=== PATIENT | male | born 1960 | race Caucasian/White ===

== ENCOUNTER 2016-06-04 00:36 | Day surgery (SDC) | payer OTHER ==
[~2016-06-04] VITALS: Ht 162.6 cm; Wt 89.2 kg
[~2016-06-04 00:36] MED LIST: NORMODYNE
[2016-06-04 01:55] LABS: BASO % 0.5 % (0.0-1.0); EOS # 0.1 K/mm3 (0.0-0.50); EOS % 0.5 % (0.0-3.0); LARGE UNSTAINED CELL % 0.3 % (0.0-4.0); LYMPH # 0.7 K/mm3 (1.5-4.5); LYMPH % 6.4 % (24.0-44.0); MEAN CORPUSCULAR HEMOGLOBIN 29.3 pg (27.0-33.0); MEAN CORPUSCULAR HGB CONC 33.7 g/dl (32.0-36.5); MONO # 0.2 K/mm3 (0.0-0.8); MONO % 2.2 % (0.0-5.0); NEUTROPHILS # 9.3 K/mm3 (1.8-7.7); NEUTROPHILS % 90.1 % (36.0-66.0); PLATELET COUNT, AUTOMATED 268 k/mm3 (150-450); WHITE BLOOD COUNT 10.3 K/mm3 (4.0-10.0)
[2016-06-04 02:17] LABS: ALBUMIN/GLOBULIN RATIO 1.11 (1.00-1.93); ALKALINE PHOSPHATASE 54 U/L (45-117); ALT/SGPT 21 U/L (12-78); AMYLASE 37 U/L (25-115); ANION GAP 11 MEQ/L (8-16); AST/SGOT 14 U/L (15-37); BILIRUBIN,DIRECT < 0.1 MG/DL (0.0-0.2); BILIRUBIN,TOTAL 0.3 MG/DL (0.2-1.0); BLOOD UREA NITROGEN 18 MG/DL (7-18); CALCIUM LEVEL 9.1 MG/DL (8.5-10.1); CARBON DIOXIDE LEVEL 26 MEQ/L (21-32); CHLORIDE LEVEL 105 MEQ/L (98-107); CREATININE FOR GFR 1.05 MG/DL (0.70-1.30); GLOMERULAR FILTRATION RATE > 60.0 (>56); GLUCOSE, FASTING 150 MG/DL (70-105); POTASSIUM SERUM 3.4 MEQ/L (3.5-5.1); SODIUM LEVEL 142 MEQ/L (136-145); TOTAL PROTEIN 7.6 GM/DL (6.4-8.2)
[2016-06-04] MEDS ORDERED: ISOVUE-370 76% 100ML VIAL (Q9967) As Ordered ONE (03:41)
[2016-06-04] MEDS ORDERED: HYDROmorphone HCL 1 MG/ML SYRINGE (J1170) As Ordered ONE ×2 (04:00→08:34)
[2016-06-04] MEDS ORDERED: ONDANSETRON 4MG/2ML VIAL (J2405) As Ordered ONE ×2 (04:14→13:14)
[2016-06-04] MEDS ORDERED: dexameTHASONE 20 MG/5 ML VIAL (J1100) As Ordered ONE (04:14)
[2016-06-04] MEDS ORDERED: diphenhydrAMINE INJ 50MG/ML VIAL (J1200) As Ordered ONE (04:14)
--- NOTE | 2016-06-04 06:10 | REPUSA ---
CLINICAL HISTORY: Abdominal pain. TECHNIQUE: Multiple axial, sagittal and coronal CT images were obtained through the abdomen and pelvi s after administration of intravenous contrast material. COMMENTS: The liver is mildly enlarged with decreased attenuation without mass or defect. There is no intra or extrahepatic biliary ductal dilatation. The spleen is normal. The gallbladder is diffusely thickened. Mild pericholecystic fat stranding. The pancreas is of normal contour and attenuation characteristic s. There is no evidence of adrenal mass. Multifocal scarring of the right kidney. Right renal simple cyst. Both kidneys demonstrate prompt and equal nephrograms. The kidneys are otherwise normal in size, shap e and configuration. There is no evidence of renal or ureteral mass. No renal or ureteral calculi are identified. There is no hydroureter or hydronephrosis. No evidence for appendicitis. There is thickening of the mid aspect of the sigmoid colon.. No eviden ce for small or large bowel obstruction. There is no evidence of abdominal ascites or lymphadenopathy . There is no evidence of intrinsic or extrinsic bladder mass. Moderate prostatomegaly. Prostatic calci fications. Thickened bladder. There is no pelvic ascites or lymphadenopathy. Mild large bowel fecal s tasis. Uncomplicated clonic diverticulosis. Images of the lung bases show no evidence of pleural or parenchymal mass. There are no pleural effusi ons. The bony structures are free of lytic or blastic lesions. Multilevel degenerative changes are seen in volving the thoracolumbar spine. Scattered calcifications are seen involving the aorta and major bran ches compatible with atherosclerosis. IMPRESSION: Mild hepatomegaly with fatty liver infiltration. Diffuse thickening of the wall of the gallbladder with pericholecystic fat stranding. Mild changes of acute cholecystitis are suspected. Ultrasound exam is helpful to further evaluate this finding. Thickening of the mid aspect of the sigmoid. Under distention versus mild colitis. Sigmoid diverticulosis. Moderate prostatomegaly. Prostatic calcifications. Thickened bladder. Thank you for your kind referral of this patient.
[2016-06-04] MEDS ORDERED: LISINOPRIL 10 MG TAB As Ordered ONE (08:14)
--- NOTE | 2016-06-04 09:15 | REP ---
Right upper quadrant sonography: History: Biliary colic. Comparison is made with CT study done earlier this date. Findings: Scanning through the right upper quadrant demonstrates a somewhat dilated, slightly thick-walled gallbladder. Gallbladder measures 10.5 cm in length. The gallbladder wall is 0.36 cm in thickness. There is evidence of a shadowing calculous in the cystic duct. There is tenderness to scanning over the gallbladder. There is evidence of fatty infiltration of the liver. Common bile duct is dilated measuring 1.84 cm. No intrahepatic ductal dilation is seen. The scan quality is somewhat limited due to high liver position. No right renal abnormality or ascites is seen. The right kidney measures 11.0 x 5.3 x 4.3 cm. Impression: Dilated, thick-walled gallbladder containing a shadowing calculus in the cystic duct. Dilated CBD 1.8 cm. Fatty infiltration of the liver. Signed by Chivo Ortega MD 06/04/2016 01:11 P
[2016-06-04] MEDS ORDERED: CETI10TA PO (09:20)
[2016-06-04] MEDS ORDERED: FLON1SPR (09:20)
[2016-06-04] MEDS ORDERED: LISI10TA4 PO (09:20)
[2016-06-04] MEDS ORDERED: DRIS50002 PO (09:20)
[2016-06-04] MEDS ORDERED: SIMV10TA2 PO (09:20)
[2016-06-04] MEDS ORDERED: PROMETHAZINE INJ 25 MG/ML VIAL (J2550) As Ordered ONE (09:44)
[2016-06-04] MEDS ORDERED: ERTAPENEM 1 GM INJ (INVanz) (J1335) As Ordered ONE (11:03)
[2016-06-04] MEDS ORDERED: BUPIVACAINE HCL 0.25% 30 ML VIAL As Ordered ONE (11:50)
[2016-06-04] MEDS ORDERED: MIDAZOLAM INJ 2 MG/2 ML VIAL (J2250) As Ordered ONE (11:52)
[2016-06-04] MEDS ORDERED: fentaNYL 250 MCG/5 ML INJECTION (J3010) As Ordered ONE (11:52)
[2016-06-04] MEDS ORDERED: LIDOCAINE 2% INJ 100 MG/5 ML SDV (FOR ANES.) As Ordered ONE (11:53)
[2016-06-04] MEDS ORDERED: ROCURONIUM BROMIDE 50 MG/5 ML VIAL As Ordered ONE (11:53)
[2016-06-04] MEDS ORDERED: PROPOFOL 200 MG/20 ML VIAL As Ordered ONE (11:54)
--- NOTE | 2016-06-04 12:05 | EDDOCDS ---
Physician Documentation [facility] Name: Ramon Davis Age: 56 yrs Sex: Male : 1960 Arrival Date: 06/04/2016 Time: 00:36 Bed 15 Private MD: Disposition: 06/04/16 11:22 Hospitalization ordered by John Cantrell for Inpatient Admission. Preliminary diagnosis is Cholecystitis. - Bed requested for Admit. - Status is Inpatient Admission. ar3 - Condition is Stable. - Problem is new. - Symptoms are unchanged. Historical: - Allergies: PENICILLINS; Latex; Adhesives; - Home Meds: 1. simvastatin 10 mg Oral tab 1 tab once daily (Last dose: 06/03/2016) 2. lisinopril 10 mg Oral tab 1 tab once daily (Last dose: 06/03/2016) 3. Vitamin D2 50,000 unit oral cap 1 cap once daily (Last dose: 06/03/2016) 4. cetirizine 5 mg oral tab 1 tab once daily - PMHx: Hypercholesterolemia; Hypertension; Cancer, Skin; - PSHx: Partial amputation Left foot; Right eye removal; Shoulder replacement X3; - Social history: Smoking status: Patient states former smoker of tobacco. No barriers to communication noted, The patient speaks fluent Ukrainian, Speaks appropriately for age. - Family history: No immediate family members are acutely ill. - : The pt / caregiver states he / she is not on anticoagulants. Home medication list is obtained from the patient. - Exposure Risk Screening:: None identified. Vital Signs: 06/04 00:55 BP 192 / 87; Pulse 58; Resp 22; Temp 96.3(O); Pulse Ox 96% on R/A; Weight 81.65 kg / kmg1 180.01 lbs; Height 5 ft. 4 in. (162.56 cm); Pain 10/10; 04:09 BP 162 / 80; Pulse 73; Resp 18; Temp 99.6(TE); Pulse Ox 98% on R/A; Pain 5/10; slime 07:38 BP 186 / 79; Pulse 76; Resp 18; Temp 99(O); Pulse Ox 96% on R/A; Pain 2/10; ja5 09:25 Pain 3/10; ja5 09:40 BP 162 / 77; Pulse 63; Resp 18; Pulse Ox 94% on R/A; Pain 3/10; dsf 09:40 BP 162 / 77; dsf 11:42 BP 154 / 79; Pulse 64; Resp 18; Temp 99.1(TE); Pulse Ox 95% on R/A; Pain 0/10; nb2 00:55 Body Mass Index 30.90 (81.65 kg, 162.56 cm) kmg1 MDM: 01:25 Undress patient appropriately for examination ordered. may 14: IV Saline Lock ordered. may 14: Amylase Ordered. EDMS 01:26 Basic Metabolic Profile Ordered. EDMS 01:26 CBC with Diff Ordered. EDMS 01:26 Lipase Ordered. EDMS 01:26 Liver Profile Ordered. EDMS 01:26 Urinalysis Ordered. EDMS 01:26 NOTHING BY MOUTH+DIET ordered. EDMS 03:33 Basic Metabolic Profile Reviewed. cs11 03:33 CBC with Diff Reviewed. cs11 03:33 Liver Profile Reviewed. cs11 03:33 Urinalysis Reviewed. cs11 03:33 Amylase Reviewed. cs11 03:33 Lipase Reviewed. cs11 03:34 NS 0.9% 1000 ml IV at bolus once ordered. cs11 03:34 Dilaudid - HYDROmorphone 1 mg IVP once ordered. cs11 03:35 CT ABD & PELVIS: IV Contrast Only Ordered. EDMS 03:36 Financial registration complete. [facility] 03:56 [facility] Payment Agreement was scanned into [employer] and attached to record. slh 04:04 diphenhydrAMINE 25 mg IVP once ordered. cs11 04:04 Dexamethasone 15 mg IV at bolus once ordered. cs11 04:09 Urine Culture Ordered. EDMS 04:12 Ondansetron 8 mg IVP once ordered. cs11 06:46 Ultrasound Abd Limited Ordered. EDMS 08:05 Lisinopril 10 mg PO once ordered. br1 08:26 Dilaudid - HYDROmorphone 0.5 mg IVP once ordered. br1 09:01 BED REQUEST+ADM ordered. EDMS 09:43 Promethazine 12.5 mg IVP once; dilute and administer 30-60 minutes ordered. br1 11:21 ELECTROCARDIOGRAM ADULT ordered. EDMS 11:25 LR Solution 1000 ml IV at 150 mL/hr once ordered. bcj 11:25 Ertapenem 1 grams IVPB once over 30 mins; dilute in 50mL of NS ordered. [facility] Administered Medications: 04:06 Drug: NS 0.9% 1000 ml [sodium chloride 0.9 % intravenous solution] Route: IV; Rate: mlc bolus; Site: left antecubital; 12:00 Follow up: IV Status: Completed infusion; IV Intake: 1000ml dsf 04:07 Drug: Dilaudid - HYDROmorphone 1 mg [hydromorphone 1 mg/mL injection syringe (1 mL)] mlc Route: IVP; Site: left antecubital; 04:29 Drug: diphenhydrAMINE 25 mg [diphenhydramine 50 mg/mL injection solution (0.5 mL)] mlc Route: IVP; Site: left antecubital; 04:30 Drug: Dexamethasone 15 mg [dexamethasone 4 mg/mL injection solution] Route: IV; Rate: mlc bolus; Site: left antecubital; 04:30 Drug: Ondansetron 8 mg [ondansetron HCl 2 mg/mL intravenous solution (3.75 mL)] Route: mlc IVP; Site: left antecubital; 08:20 Drug: Lisinopril 10 mg [lisinopril 10 mg tablet (1 tabs)] Route: PO; 09:40 Follow up: BP 162 / 77 dsf 08:39 Drug: Dilaudid - HYDROmorphone 0.5 mg [hydromorphone 1 mg/mL injection syringe (0.5 ja5 mL)] Route: IVP; Site: left antecubital; 09:25 Follow up: Pain 3/10 Adult ja5 09:40 Follow up: BP 162 / 77; Pulse 63 bpm; Resp 18 bpm; Pulse Ox 94% RA; Pain 3/10 Adult dsf 09:48 Drug: Promethazine 12.5 mg [promethazine 25 mg/mL injection solution (0.5 mL)] Route: dsf IVP; Site: left antecubital; 11:00 Follow up: Response: Nausea is decreased [facility] 11:25 Drug: LR 1000 ml [lactated ringers intravenous solution] Route: IV; Rate: 125 mL/hr; [facility] Site: left antecubital; 11:46 Follow up: IV Status: Infusion continued upon admit [facility] 11:25 Drug: Ertapenem 1 grams [ertapenem 1 gram solution for injection] Route: IVPB; Infused bcj Over: 30 mins; Site: left antecubital; 11:46 Follow up: IV Status: Completed infusion bcj Signatures: Dispatcher [employer] Rafaela Mackenzie, RN RN kmg1 Adonay Olivier RN RN eddj Esme Bravo RN RN Cabrera Sears MD MD br1 Teodora, Yanely, CLINICAL RESEARCH ASSOCIATE CLINICAL RESEARCH ASSOCIATE ar3 Diogenes Gerard, DO [facility] Corrina Chamorro Zabrina Nichole RN, Mandy RN mlc Anderson, Jessica RN ja5 The chart was reviewed and I authenticate all verbal orders and agree with the evaluation and treatment provided.Attachments: 03:56 [facility] Payment Agreement [facility]TDD
--- NOTE | 2016-06-04 12:06 | EDDOCDS ---
Nurse's Notes [facility] Name: Ramon Davis Age: 56 yrs Sex: Male : 1960 Arrival Date: 06/04/2016 Time: 00:36 Bed 15 Private MD: Diagnosis: Cholecystitis Presentation: 06/04 00:50 Presenting complaint: Patient states: Severe abdominal cramping. Vomiting, diarrhea kmg1 since 1999. Suicide/Homicide risk assessment- the patient denies having any suicidal and/or homicidal ideations and does not present with any other emotional, behavioral or mental health complaints. 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 Transition of care: patient was not received from another setting of care. 00:50 Acuity: JACOBY Level 3 kmg1 00:50 Method Of Arrival: Walkin/Carried/Asstd km 07:39 Adult Sepsis Screening: The patient does not have new or worsening altered mentation. ja5 Patient's respiratory rate is less than 22. Systolic blood pressure is greater than 100. Patient has a qSOFA score of 0- Negative Sepsis Screen. Triage Assessment: 00:55 General: Appears uncomfortable, Behavior is restless. Pain: Location: epigastric area kmg1 Pain currently is 10 out of 10 on a pain scale. Quality of pain is described as crampy, sharp. HIV screening NA for this visit Offered previously. GI: Reports diarrhea, upper abdominal pain, nausea, vomiting. Historical: - Allergies: PENICILLINS; Latex; Adhesives; - Home Meds: 1. simvastatin 10 mg Oral tab 1 tab once daily (Last dose: 06/03/2016) 2. lisinopril 10 mg Oral tab 1 tab once daily (Last dose: 06/03/2016) 3. Vitamin D2 50,000 unit oral cap 1 cap once daily (Last dose: 06/03/2016) 4. cetirizine 5 mg oral tab 1 tab once daily - PMHx: Hypercholesterolemia; Hypertension; Cancer, Skin; - PSHx: Partial amputation Left foot; Right eye removal; Shoulder replacement X3; - Social history: Smoking status: Patient states former smoker of tobacco. No barriers to communication noted, The patient speaks fluent Spanish, Speaks appropriately for age. - Family history: No immediate family members are acutely ill. - : The pt / caregiver states he / she is not on anticoagulants. Home medication list is obtained from the patient. - Exposure Risk Screening:: None identified. Screenin:47 Screening information is obtained from the patient. Fall risk: No risks identified. kmg1 Assistance ADL's: requires no assistance with activities of daily living. Abuse/DV Screen: The patient / caregiver reports he/she is: not in a situation that causes fear, pain or injury. Nutritional screening: No deficits noted. home support is adequate. 07:42 Advance Directives: Currently, there is no health care proxy. There is no active DNR ja5 order. There is no living will. There is no Power of Food Service. Assessment: 01:46 General: Appears ill, uncomfortable, Behavior is restless. Pain: Location: epigastric kmg1 area Pain currently is 10 out of 10 on a pain scale. GI: Abdomen is non- distended Pt is actively vomiting clear fluid, Bowel sounds present X 4 quads. Abd is soft X 4 quads Abd is tender to palpation in epigastric area. 02:45 General: Appears uncomfortable, Behavior is restless. Pain: Pain currently is 10 out of kmg1 10 on a pain scale. 03:45 Reassessment: Patient states symptoms have not improved. Remains restless. kmg1 04:30 Reassessment: Patient states feeling better. Patient states symptoms have improved. kmg1 Pain: Pain currently is 3 out of 10 on a pain scale. 05:41 Reassessment: Patient appears in no apparent distress at this time. Patient states kmg1 feeling better. Patient states symptoms have improved. 06:47 Reassessment: Patient appears in no apparent distress at this time. Patient states kmg1 feeling better. Patient states symptoms have improved. 07:40 General: Appears in no apparent distress, comfortable, Behavior is appropriate for age, ja5 cooperative. Pain: Location: abdomen Pain currently is 2 out of 10 on a pain scale. Neurological: Level of Consciousness is awake, alert, Oriented to person, place, time, Weatherization Administrator are. Cardiovascular: Heart tones S1 S2 present. Respiratory: Airway is patent Respiratory effort is even, unlabored, Breath sounds are clear. GI: Abdomen is distended, Bowel sounds present X 4 quads. Abd is soft Abd is tender to palpation. Derm: Skin is intact, Skin is Skin is pink, warm & dry. 08:28 General: Patient resting in stretcher with reports of increased pain to abdomen 4/10, ja5 new orders for pain medication received. . 09:26 General: Patient resting in stretcher, pain has decreased to 3/10 at this time.. ja5 09:40 General: Appears in no apparent distress, Behavior is appropriate for age, cooperative. dsf Pain: Location: epigastric area, right upper quadrant and left upper quadrant Pain currently is 3 out of 10 on a pain scale. Quality of pain is described as sharp, throbbing. Neurological: Level of Consciousness is awake, alert, Oriented to person, place, time. Cardiovascular: Capillary refill < 3 seconds Heart tones S1 S2 present. Respiratory: Airway is patent Respiratory effort is even, unlabored, Respiratory pattern is regular, symmetrical, Breath sounds are clear bilaterally. GI: Abdomen is non- distended Bowel sounds present X 4 quads. Abd is soft X 4 quads Abd is tender to palpation in epigastric area, right upper quadrant and left upper quadrant Reports upper abdominal pain, nausea. Derm: Skin is pink, warm & dry. 10:00 General: Dr. Cantrell in room examining patient . dsf 11:01 Adult Sepsis Screening: The patient does not have new or worsening altered mentation. dsf Patient's respiratory rate is less than 22. Systolic blood pressure is greater than 100. Patient has a qSOFA score of 0- Negative Sepsis Screen. General: Appears in no apparent distress, comfortable, Behavior is appropriate for age, cooperative. Pain: Location: left upper quadrant and right upper quadrant and epigastric area Pain currently is 2 out of 10 on a pain scale. Neurological: Level of Consciousness is awake, alert. Cardiovascular: Capillary refill < 3 seconds. Respiratory: Airway is patent Respiratory effort is even, unlabored, Respiratory pattern is regular, symmetrical. GI: Reports nausea is better. Derm: Skin is pink, warm & dry. 11:43 General: Appears in no apparent distress, comfortable, Behavior is cooperative. Pain: bcj Denies pain. GI: Abdomen is non- distended. Derm: Skin is pink, warm & dry. Vital Signs: 00:55 BP 192 / 87; Pulse 58; Resp 22; Temp 96.3(O); Pulse Ox 96% on R/A; Weight 81.65 kg; kmg1 Height 5 ft. 4 in. (162.56 cm); Pain 10/10; 04:09 BP 162 / 80; Pulse 73; Resp 18; Temp 99.6(TE); Pulse Ox 98% on R/A; Pain 5/10; slime 07:38 BP 186 / 79; Pulse 76; Resp 18; Temp 99(O); Pulse Ox 96% on R/A; Pain 2/10; ja5 09:25 Pain 3/10; ja5 09:40 BP 162 / 77; Pulse 63; Resp 18; Pulse Ox 94% on R/A; Pain 3/10; dsf 09:40 BP 162 / 77; dsf 11:42 BP 154 / 79; Pulse 64; Resp 18; Temp 99.1(TE); Pulse Ox 95% on R/A; Pain 0/10; nb2 00:55 Body Mass Index 30.90 (81.65 kg, 162.56 cm) [facility] [place] Vitals: 00:55 Log In Time: June 04, 2016 at 00:36. [facility] [place] [place] ED Course: 00:38 Patient visited by Abby Coles. gjb 00:38 Patient moved to Waiting gjb 00:51 Triage Initiated kmg1 00:59 Patient moved to 15 kmg1 01:46 Amylase Sent. kmg1 01:46 Basic Metabolic Profile Sent. kmg1 01:46 CBC with Diff Sent. kmg1 01:46 Lipase Sent. kmg1 01:46 Liver Profile Sent. kmg1 01:46 Urinalysis Sent. kmg1 01:47 The patient / caregiver is instructed regarding the plan of care and ED course. kmg1 01:47 Inserted saline lock: 20 gauge in left antecubital area. Labs drawn. (by ED staff). kmg1 Sent per order to lab. Urine collected. Clean catch specimen. Urine specimen sent to lab. 01:47 No procedures done that require assistance. kmg1 01:48 Patient visited by Rafaela Trinidad RN. kmg1 03:03 Patient visited by Prachi Lee PCA. slime 03:29 Diogenes Gerard DO is Attending Physician. cs11 03:29 Patient visited by Diogenes Gerard DO. cs11 03:56 [facility] Payment Agreement was scanned into [employer] and attached to record. sl 04:10 Patient visited by Prachi Lee PCA. slime 05:41 Patient visited by Rafaela Trinidad RN. kmg1 06:35 CT ABD & PELVIS: IV Contrast Only Returned. EDMS 06:51 Patient visited by Rafaela Trinidad, KAY. kmg1 06:57 Attending Physician role handed off by Diogenes Gerard DO br1 06:57 Cabrera Ortega MD is Attending Physician. br1 07:07 Carol Ann Juarez,RN is Primary Nurse. ja5 07:22 Annel Flood, KAY is Primary Nurse. jc4 07:35 Patient moved to Ultrasound sm5 07:38 Patient visited by Carol Ann Juarez RN. ja5 08:04 Patient moved to 15 sm5 08:27 Patient visited by Carol Ann Juarez,KAY. ja5 08:29 Patient visited by Carol Ann Juarez,KAY. ja5 08:41 Patient visited by Carol Ann Juarez RN. ja5 09:26 Patient visited by Carol Ann Juarez RN. ja5 09:41 Patient visited by Zabrina Lamar RN. dsf 09:45 Ultrasound Abd Limited Returned. EDMS 10:27 Patient visited by Zabrina Lamar RN. dsf 11:01 Patient visited by Fransisca Taylor PCA. ct3 11:01 Patient visited by Zabrina Lamar,KAY. dsf 11:22 John Cantrell is Hospitalizing Provider. br1 11:25 EKG done. (by ED staff). Reviewed by Cabrera Ortega MD. nb2 11:28 Patient visited by Rajwinder Estrada. nb2 11:42 Patient visited by Rajwinder Estrada. nb2 11:47 No apparent distress. Resting quietly. Awaiting OR. bcj 11:47 IV is intact. bcj Administered Medications: 04:06 Drug: NS 0.9% 1000 ml [sodium chloride 0.9 % intravenous solution] Route: IV; Rate: mlc bolus; Site: left antecubital; 12:00 Follow up: IV Status: Completed infusion; IV Intake: 1000ml dsf 04:07 Drug: Dilaudid - HYDROmorphone 1 mg [hydromorphone 1 mg/mL injection syringe (1 mL)] mlc Route: IVP; Site: left antecubital; 04:29 Drug: diphenhydrAMINE 25 mg [diphenhydramine 50 mg/mL injection solution (0.5 mL)] mlc Route: IVP; Site: left antecubital; 04:30 Drug: Dexamethasone 15 mg [dexamethasone 4 mg/mL injection solution] Route: IV; Rate: mlc bolus; Site: left antecubital; 04:30 Drug: Ondansetron 8 mg [ondansetron HCl 2 mg/mL intravenous solution (3.75 mL)] Route: mlc IVP; Site: left antecubital; 08:20 Drug: Lisinopril 10 mg [lisinopril 10 mg tablet (1 tabs)] Route: PO; ja5 09:40 Follow up: BP 162 / 77 dsf 08:39 Drug: Dilaudid - HYDROmorphone 0.5 mg [hydromorphone 1 mg/mL injection syringe (0.5 ja5 mL)] Route: IVP; Site: left antecubital; 09:25 Follow up: Pain 310 Adult ja5 09:40 Follow up: BP 162 / 77; Pulse 63 bpm; Resp 18 bpm; Pulse Ox 94% RA; Pain 07/21 Adult dsf 09:48 Drug: Promethazine 12.5 mg [promethazine 25 mg/mL injection solution (0.5 mL)] Route: dsf IVP; Site: left antecubital; 11:00 Follow up: Response: Nausea is decreased dsf 11:25 Drug: LR 1000 ml [lactated ringers intravenous solution] Route: IV; Rate: 125 mL/hr; bcj Site: left antecubital; 11:46 Follow up: IV Status: Infusion continued upon admit bcj 11:25 Drug: Ertapenem 1 grams [ertapenem 1 gram solution for injection] Route: IVPB; Infused bcj Over: 30 mins; Site: left antecubital; 11:46 Follow up: IV Status: Completed infusion bcj Intake: 12:00 IV: 1000.00ml; Total: 1000.00ml. dsf Output: 06:51 Urine: 600.00ml (Voided); Total: 600.00ml. kmg1 Order Results: Lab Order: Amylase; SPEC'M 06/04/16 01:42 Test: AMYLASE; Value: 37; Range: 25-115; Units: U/L; Status: F Lab Order: Basic Metabolic Profile; SPEC'M 06/04/16 01:42 Test: GLUCOSE, FASTING; Value: 150; Range: 70-105; Abnormal: Above high normal; Units: MG/DL; Status: F Test: BLOOD UREA NITROGEN; Value: 18; Range: 7-18; Units: MG/DL; Status: F Test: CREATININE FOR GFR; Value: 1.05; Range: 0.70-1.30; Units: MG/DL; Status: F Test: GLOMERULAR FILTRATION RATE; Value: > 60.0; Range: >56; Status: F Test: SODIUM LEVEL; Value: 142; Range: 136-145; Units: MEQ/L; Status: F Test: POTASSIUM SERUM; Value: 3.4; Range: 3.5-5.1; Abnormal: Below low normal; Units: MEQ/L; Status: F Test: CHLORIDE LEVEL; Value: 105; Range: 98-107; Units: MEQ/L; Status: F Test: CARBON DIOXIDE LEVEL; Value: 26; Range: 21-32; Units: MEQ/L; Status: F Test: ANION GAP; Value: 11; Range: 8-16; Units: MEQ/L; Status: F Test: CALCIUM LEVEL; Value: 9.1; Range: 8.5-10.1; Units: MG/DL; Status: F Test Note: ; Units are mL/min/1.73 m2 Chronic Kidney Disease Staging per NKF: Stage I & II GFR >=60 Normal to Mildly Decreased Stage III GFR 30-59 Moderately Decreased Stage IV GFR 15-29 Severely Decreased Stage V GFR <15 Very Little GFR Left ESRD GFR <15 on REAL ESTATE MANAGEMENT SPECIALIST Lab Order: CBC with Diff; SPEC'M 06/04/16 01:42 Test: WHITE BLOOD COUNT; Value: 10.3; Range: 4.0-10.0; Abnormal: Above high normal; Units: K/mm3; Status: F Test: RED BLOOD COUNT; Value: 5.14; Range: 4.30-6.10; Units: M/mm3; Status: F Test: HEMOGLOBIN; Value: 15.1; Range: 14.0-18.0; Units: g/dl; Status: F Test: HEMATOCRIT; Value: 44.7; Range: 42.0-52.0; Units: %; Status: F Test: MEAN CORPUSCULAR VOLUME; Value: 87.0; Range: 80.0-96.0; Units: fl; Status: F Test: MEAN CORPUSCULAR HEMOGLOBIN; Value: 29.3; Range: 27.0-33.0; Units: pg; Status: F Test: MEAN CORPUSCULAR HGB CONC; Value: 33.7; Range: 32.0-36.5; Units: g/dl; Status: F Test: RED CELL DISTRIBUTION WIDTH; Value: 14.0; Range: 11.5-14.5; Units: %; Status: F Test: PLATELET COUNT, AUTOMATED; Value: 268; Range: 150-450; Units: k/mm3; Status: F Test: NEUTROPHILS %; Value: 90.1; Range: 36.0-66.0; Abnormal: Above high normal; Units: %; Status: F Test: LYMPH %; Value: 6.4; Range: 24.0-44.0; Abnormal: Below low normal; Units: %; Status: F Test: MONO %; Value: 2.2; Range: 0.0-5.0; Units: %; Status: F Test: EOS %; Value: 0.5; Range: 0.0-3.0; Units: %; Status: F Test: BASO %; Value: 0.5; Range: 0.0-1.0; Units: %; Status: F Test: LARGE UNSTAINED CELL %; Value: 0.3; Range: 0.0-4.0; Units: %; Status: F Test: NEUTROPHILS #; Value: 9.3; Range: 1.8-7.7; Abnormal: Above high normal; Units: K/mm3; Status: F Test: LYMPH #; Value: 0.7; Range: 1.5-4.5; Abnormal: Below low normal; Units: K/mm3; Status: F Test: MONO #; Value: 0.2; Range: 0.0-0.8; Units: K/mm3; Status: F Test: EOS #; Value: 0.1; Range: 0.0-0.50; Units: K/mm3; Status: F Test: BASO #; Value: 0.0; Range: 0.0-0.2; Units: K/mm3; Status: F Test: LARGE UNSTAINED CELL #; Value: 0.0; Range: 0.0-0.4; Units: K/mm3; Status: F Lab Order: Lipase; SPEC'M 06/04/16 01:42 Test: LIPASE; Value: 90; Range: 73-393; Units: U/L; Status: F Lab Order: Liver Profile; SPEC'M 06/04/16 01:42 Test: AST/SGOT; Value: 14; Range: 15-37; Abnormal: Below low normal; Units: U/L; Status: F Test: ALT/SGPT; Value: 21; Range: 12-78; Units: U/L; Status: F Test: ALKALINE PHOSPHATASE; Value: 54; Range: 45-117; Units: U/L; Status: F Test: BILIRUBIN,TOTAL; Value: 0.3; Range: 0.2-1.0; Units: MG/DL; Status: F Test: BILIRUBIN,DIRECT; Value: < 0.1; Range: 0.0-0.2; Units: MG/DL; Status: F Test: TOTAL PROTEIN; Value: 7.6; Range: 6.4-8.2; Units: GM/DL; Status: F Test: ALBUMIN; Value: 4.0; Range: 3.2-5.2; Units: GM/DL; Status: F Test: ALBUMIN/GLOBULIN RATIO; Value: 1.11; Range: 1.00-1.93; Status: F Lab Order: Urinalysis; SPEC'M 06/04/16 01:43 Test: APPEARANCE, URINE; Value: CLEAR; Range: CLEAR; Status: F Test: COLOR, URINE; Value: YELLOW; Range: YELLOW; Status: F Test: PH,URINE; Value: 7.0; Range: 5.0-9.0; Units: UNITS; Status: F Test: SPECIFIC GRAVITY URINE AUTO; Value: 1.016; Range: 1.002-1.035; Status: F Test: PROTEIN, URINE AUTO; Value: NEGATIVE; Range: NEGATIVE; Units: mg/dL; Status: F Test: GLUCOSE, URINE (UA) AUTO; Value: 1+; Range: NEGATIVE; Abnormal: Above high normal; Units: mg/dL; Status: F Test: KETONE, URINE AUTO; Value: 2+; Range: NEGATIVE; Abnormal: Above high normal; Units: mg/dL; Status: F Test: UROBILINOGEN, URINE AUTO; Value: 0.2; Range: 0.0-2.0; Units: mg/dL; Status: F Test: BILIRUBIN, URINE AUTO; Value: NEGATIVE; Range: NEGATIVE; Status: F Test: NITRITE, URINE AUTO; Value: NEGATIVE; Range: NEGATIVE; Status: F Test: LEUKOCYTE ESTERASE, URINE AUTO; Value: NEGATIVE; Range: NEGATIVE; Status: F Test: BLOOD, URINE BLOOD; Value: 2+; Range: NEGATIVE; Abnormal: Above high normal; Status: F Test: WBC, URINE AUTO; Value: 2; Range: 0-3; Units: /HPF; Status: F Test: RBC, URINE AUTO; Value: 12; Range: 0-3; Abnormal: Above high normal; Units: /HPF; Status: F Test: BACTERIA, URINE AUTO; Value: NEGATIVE; Range: NEGATIVE; Status: F Test: SQUAMOUS EPITHELIAL CELL UR AU; Value: 0; Range: 0-6; Units: /HPF; Status: F Test: MUCUS, URINE; Value: SMALL; Range: NEGATIVE; Status: F Test: HYALINE CAST, URINE AUTO; Value: 0; Range: 0-1; Units: /LPF; Status: F Radiology Order: CT ABD & PELVIS: IV Contrast Only Test: CT ABD & PELVIS: IV Contrast Only REASON FOR EXAMINATION: Abdomen Pain; ; CLINICAL HISTORY: Abdominal pain.; TECHNIQUE: Multiple axial, sagittal and coronal CT images were obtained through the abdomen and pelvi; s after administration of intravenous contrast material.; COMMENTS:; The liver is mildly enlarged with decreased attenuation without mass or defect. There is no intra or; extrahepatic biliary ductal dilatation. The spleen is normal. The gallbladder is diffusely thickened.; Mild pericholecystic fat stranding. The pancreas is of normal contour and attenuation characteristic; s. There is no evidence of adrenal mass.; Multifocal scarring of the right kidney. Right renal simple cyst.; Both kidneys demonstrate prompt and equal nephrograms. The kidneys are otherwise normal in size, shap; e and configuration. There is no evidence of renal or ureteral mass. No renal or ureteral calculi are; identified. There is no hydroureter or hydronephrosis.; No evidence for appendicitis. There is thickening of the mid aspect of the sigmoid colon.. No eviden; ce for small or large bowel obstruction. There is no evidence of abdominal ascites or lymphadenopathy; .; There is no evidence of intrinsic or extrinsic bladder mass. Moderate prostatomegaly. Prostatic calci; fications. Thickened bladder. There is no pelvic ascites or lymphadenopathy. Mild large bowel fecal s; tasis. Uncomplicated clonic diverticulosis.; Images of the lung bases show no evidence of pleural or parenchymal mass. There are no pleural effusi; ons.; The bony structures are free of lytic or blastic lesions. Multilevel degenerative changes are seen in; volving the thoracolumbar spine. Scattered calcifications are seen involving the aorta and major bran; ches compatible with atherosclerosis.; IMPRESSION:; Mild hepatomegaly with fatty liver infiltration.; Diffuse thickening of the wall of the gallbladder with pericholecystic fat stranding. Mild changes of; acute cholecystitis are suspected. Ultrasound exam is helpful to further evaluate this finding.; Thickening of the mid aspect of the sigmoid. Under distention versus mild colitis.; Sigmoid diverticulosis.; Moderate prostatomegaly. Prostatic calcifications.; Thickened bladder.; Thank you for your kind referral of this patient.; ; Radiology Order: Ultrasound Abd Limited Test: Ultrasound Abd Limited REASON FOR EXAMINATION: Biliary Colic; Right upper quadrant sonography:; ; History: Biliary colic.; ; Comparison is made with CT study done earlier this date.; ; Findings: Scanning through the right upper quadrant demonstrates a somewhat; dilated, slightly thick-walled gallbladder. Gallbladder measures 10.5 cm in; length. The gallbladder wall is 0.36 cm in thickness. There is evidence of a; in the cystic duct. There is tenderness to scanning over the; gallbladder. There is evidence of fatty infiltration of the liver. Common bile; duct is dilated measuring 1.84 cm. No intrahepatic ductal dilation is seen. The; scan quality is somewhat limited due to high liver position. No right renal; abnormality or ascites is seen. The right kidney measures 11.0 x 5.3 x 4.3 cm.; ; Impression:; ; Dilated, thick-walled gallbladder containing a shadowing calculus in the cystic; duct. Dilated CBD 1.8 cm. Fatty infiltration of the liver.; ; ; ; ; Unreviewed; Outcome: 11:22 Decision to Hospitalize by Provider. br1 12:04 Patient left the ED. ar3 Signatures: Dispatcher [employer] EDMS Rafaela Trinidad, RN RN kmg1 Adonay Olivier, RN RN Elizabeth Fortune 5 Cabrera Ortega MD MD br1 Yanely Araiza, HOTEL ASSISTANT MANAGER HOTEL ASSISTANT MANAGER ar3 Annel Flood, RN RN jc4 Rosa, Prachi, HOTEL ASSISTANT MANAGER HOTEL ASSISTANT MANAGER slime Taylor, Fransisca, HOTEL ASSISTANT MANAGER HOTEL ASSISTANT MANAGER ct3 Zabrina Lamar,RN RN dsf Diogenes Gerard, DO cs11 Belen Brunner,RN RN bel Chamorro, Abby Britton Nicole nb2 Carol Ann Juarez,RN RN ja5 MTDD
[2016-06-04] MEDS ORDERED: SUCCINYLCHOLINE 100 MG/5 ML SYRINGE (J0330) As Ordered ONE (12:33)
--- NOTE | 2016-06-04 13:06 | HPE ---
DATE OF ADMISSION: 06/04/2016 The patient is being placed on same-day surgery status for acute cholecystitis. HISTORY OF PRESENT ILLNESS: The patient is a very pleasant 56-year-old man who presented to the emergency department at 1236 in the morning of 06/04/2016 complaining of abdominal pain. The patient reports that he noted the onset of pain following a meal at about 4:00 o'clock in the afternoon on 06/03/2016. He developed discomfort in the epigastrium and right subcostal area. Shortly thereafter, he had a little vomiting and also had nausea and vomiting develop. This persisted during the course of the evening. He presented to the emergency department. He was treated with hydromorphone for pain. He continued to have discomfort and tenderness in the right subcostal area. His evaluation included a gallbladder ultrasound and CT scan of the abdomen and pelvis. He was found to have a stone in the gallbladder neck area. The gallbladder appeared slightly thickened with some pericholecystic inflammation. His liver function tests were normal. I was consulted after he had been in the emergency department about eight hours that he still had tenderness in the right subcostal area. The patient does report that he has had two prior episodes of less intense and shorter duration pains similar to this. One was about three months ago where he had pain for perhaps a few hours. The second episode was more intense and was about a month ago. He did not seek any care for either these episodes. The patient's current history, testing, and physical examination were felt to be consistent with acute cholecystitis and he is now being placed on same-day surgery status to undergo a laparoscopic cholecystectomy. ALLERGIES: The patient reports allergies to PENICILLIN. He indicates that he was told as a child that he had had a reaction and that he should not have penicillin again. He reports that he has had allergic-type reactions to TAPE, either from the adhesive or from the plastic parts of the tape itself. MEDICATIONS: His home medications include: - simvastatin 10 mg by mouth once daily - lisinopril 10 mg by mouth once daily - vitamin D 50,000 units by mouth daily - cetirizine 5 mg by mouth once daily PAST MEDICAL HISTORY: Significant for: 1. Hypertension. 2. He has had hypercholesterolemia. 3. He has a history of recurring problems with his right shoulder. 4. He has had skin cancers removed as well as some sort of tumor of his right eye. PAST MEDICAL HISTORY: Includes: 1. 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 2. 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 3. He has had his right shoulder operated on three times, most recently in January 2016. At which time, he says he had a reverse shoulder replacement. He has not yet convalesced fully from this. SOCIAL HISTORY: He is a former smoker but no longer smokes. He denies significant alcohol intake. He is accompanied to the emergency department by his spouse. FAMILY HISTORY: There are no significant heritable conditions reported in his family. REVIEW OF SYSTEMS: The patient denies any history of seizure or stroke. He has no chest pain or palpitations. He denies any cough, wheezing, or sputum production. He has had no dysuria or hematuria. There is no history of deep vein thrombosis (DVT) or pulmonary embolus. He has no acute orthopedic issues, other than his right shoulder. There are no reported endocrine problems, either thyroid or diabetes. The patient's primary physician is a Dr. Dimple Mars in [place]. PHYSICAL EXAMINATION: Reveals a very pleasant gentleman lying quietly on the stretcher in the emergency department. He is missing his right globe. There is a small open area at the medial aspect of the right eye socket which is not further inspected. This is about a centimeter in diameter. The remainder of the eye socket is covered with healthy skin, though there is some scarring. The left eye is without icteric changes. Mucous membranes are moist. The neck is supple without mass or bruit. He has several overlapping scars on the anterior aspect of the right shoulder. There is some irregularity to the right pectoral area. Heart examination shows a regular rate and rhythm. The lungs are clear to auscultation bilaterally. The abdomen shows an old right lower quadrant paramedian scar consistent with an appendectomy. The abdomen is mildly obese. He has no tympany to percussion. There is some tenderness to percussion with some radiation of this tenderness to the right subcostal area toward the medial aspect of the subcostal region. On palpation, he has moderate direct tenderness in the right subcostal area medially. There is no definite mass. The remainder of the abdomen is soft. There may be a small umbilical hernia. Lower extremities are without edema. He has a proximal left foot amputation which appears to be well-healed and old. He has a palpable pulse in the right foot. He has palpable radial pulses bilaterally. LABORATORY DATA: His laboratory studies include a CBC showing a white count of 10, hemoglobin of 15, hematocrit of 45, and platelet count of 268,000. His differential count shows 90% neutrophils, 6% lymphocytes, and 2 monocytes. Chemistry profile shows a sodium of 142, potassium 3.4, chloride 105, CO2 of 26, BUN of 18, creatinine 1.0, and his glucose is 150. Amylase and lipase are normal. Liver function tests are normal. He has a total protein is 7.6 with an albumin of 4.0. Urinalysis is not suggestive of a urinary tract infection. The CT scan was interpreted by the tele-radiologist as showing some mild thickening of the wall of the gallbladder with some pericholecystic fat stranding. There was some sigmoid diverticulosis noted. A gallbladder ultrasound showed a stone in the region of the gallbladder neck/cystic duct region. The radiologist interpreted the common duct as dilated at 1.84 cm. I reviewed the images and I think this is an over-interpretation of the measurement from the instructor adjunct pharmacy technician. Certainly, the CT scan showed no evidence of dilated bile ducts. IMPRESSION: 1. Cholelithiasis with acute cholecystitis. 2. Hypertension. 3. Hypercholesterolemia. 4. 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 5. Status post partial left foot amputation. 6. Status post redo right shoulder arthroplasty. PLAN: The patient was counseled that he has evidence for acute cholecystitis. His history is certainly consistent and his examination shows that he has persistent tenderness, now greater than 12 hours after the onset of the discomfort. I have advised him that the best approach is to proceed with a cholecystectomy early in the course of his acute cholecystitis. I have recommended that we proceed with this today. He will receive some IV fluid and be kept nothing by mouth. I will give him a dose of Invanz for antibiotic coverage. He will be scheduled for a laparoscopic cholecystectomy on an urgent basis today. He was counseled for the surgery to include the risks, possible benefits, and the nature of the procedure. He desires to proceed.
[2016-06-04] MEDS ORDERED: NEOSTIGMINE 1MG/ML 5 ML SYRINGE (J2710) As Ordered ONE (13:14)
[2016-06-04] MEDS ORDERED: GLYCOPYRROLATE INJ 0.2 MG/ML 2 ML VIAL As Ordered ONE (13:14)
[2016-06-04] MEDS ORDERED: BUPIVACAINE HCL 0.25% 30 ML VIAL XX ONE (14:05)
[2016-06-04] MEDS ORDERED: fentaNYL 100 MCG/2 ML INJECTION (J3010) IV PRN (14:30)
[2016-06-04] MEDS ORDERED: LR 1,000 ML IV SCH (14:30)
[2016-06-04] MEDS ORDERED: HYDROmorphone HCL 1 MG/ML SYRINGE (J1170) IV PRN (14:30)
[2016-06-04] MEDS ORDERED: ONDANSETRON 4MG/2ML VIAL (J2405) IV PRN (14:30)
[2016-06-04] MEDS ORDERED: ACETAMINOPHEN TAB 650MG DOSE (2X325MG) PO PRN (15:00)
[2016-06-04 15:10] VITALS: BP 181/78
[2016-06-04] MEDS ORDERED: MORPHINE 2 MG/ML 1ML SYRINGE As Ordered ONE (15:26)
[2016-06-04 15:30] VITALS: BP_SYST 171; BP_DIAS 26; BP_DIAS 86
[2016-06-04] MEDS: MORPHINE 2 MG/ML 1ML SYRINGE IV PRN ×2 (15:33→17:25)
[2016-06-04] MEDS: LR 1,000 ML IV SCH (15:35)
[2016-06-04 16:00] VITALS: BP 173/88
[2016-06-04] MEDS: KETOROLAC 30 MG/ML VIAL (J1885) IV PRN ×2 (16:01→23:27)
[2016-06-04 17:00] VITALS: BP 184/93
[2016-06-04 17:30] VITALS: BP 165/86
[2016-06-04] MEDS: PERCOCET 5MG/325MG TAB PO PRN ×2 (17:45→22:30)
--- NOTE | 2016-06-04 20:49 | ECGEPIP ---
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
[2016-06-04 22:00] VITALS: BP 122/62
[2016-06-05 02:00] VITALS: BP 126/62
[2016-06-05] MEDS: LR 1,000 ML IV SCH (03:41)
[2016-06-05 06:00] VITALS: BP 131/75
[2016-06-05 07:18] VITALS: BP 131/75
[2016-06-05] MEDS: PERCOCET 5MG/325MG TAB PO PRN (08:42)
--- NOTE | 2016-06-05 09:57 | RO ---
DATE OF PROCEDURE: 06/04/2016 PREOPERATIVE DIAGNOSES: Cholelithiasis and acute cholecystitis. POSTOPERATIVE DIAGNOSES: Cholelithiasis and acute cholecystitis, with adhesion. PROCEDURE PERFORMED: Laparoscopic cholecystectomy with lysis of adhesions. SURGEON: John Cantrell MD LOGGING TRUCK DRIVER: ANESTHESIA: General. INDICATION FOR THE PROCEDURE: Patient is a 56-year-old man who presented to the emergency department with a 6-8 hour history of right upper quadrant pain with associated nausea and vomiting. He was found to have a mild elevation of the white count but with a left shift. CT scan and gallbladder ultrasound were done. He was found to have a stone in the region of the gallbladder neck with thickening of gallbladder wall and gallbladder distension. He had persistent tenderness in the right upper quadrant greater than 12 hours after onset of his pain. He was diagnosed with acute cholecystitis and is now for a laparoscopic cholecystectomy. OPERATIVE PROCEDURE: The patient was placed under general endotracheal anesthesia. The patient's abdomen was prepped and draped in a sterile fashion. 0.25% Marcaine was infiltrated at each the trocar sites. A short supraumbilical midline incision was made. This was deepened through the subcutaneous tissues. The fascia was exposed and opened at the midline, and the peritoneum was opened bluntly. A Leanna cannula was inserted. The abdomen was inflated with carbon dioxide gas. The laparoscope was placed. Initial examination showed a large amount of omentum up over the right lobe of the liver and the gallbladder was not visible. The liver itself appeared normal and visualized portions of the stomach and small and large bowel appeared normal. The patient was tilted to a reverse Trendelenburg position and rolled to the left. Two 5 mm trocars were placed in the right upper quadrant and third 5 mm trocar was placed in the left upper quadrant. In the course of the procedure, the stay sutures for the Leanna cannula both pulled through indicating the thin and weak nature of the fascia along the edges on both sides of the wound. Graspers were inserted and the omentum was pulled down off the right lobe of the liver, but there were multiple small but firm and obviously older adhesions of the omentum to the gallbladder and the area around the gallbladder bed. These were lysed using the electrocautery to free the omentum so that it could be pulled away to expose the gallbladder. The gallbladder was quite distended. The gallbladder was aspirated a large amount of thin bile. The gallbladder was then grasped and elevated. There were some other additional adhesions around the neck of the gallbladder. As these were peeled away, it was clear that there was some edema and inflammation, particularly around the gallbladder neck. The peritoneum was opened and dissection was performed through the tissues around the neck of the gallbladder. The cystic duct was identified and the cystic duct was doubly clipped and divided. The gallbladder was then dissected free from the gallbladder bed using cautery dissection. A distinct arterial branch was not identified in the course of dissection. The gallbladder was entered toward the fundus but there was no significant spillage of bile. The gallbladder was completely removed from the gallbladder bed and placed in an Endopouch. The right upper quadrant was irrigated and inspected. A few small bleeding points on the gallbladder bed were controlled with cautery. Final inspection revealed no bleeding and no bile leak. The patient was returned to a flat position. The abdomen was deflated and the trocars were removed. The gallbladder was recovered through the Leanna site and there was a single stone, approximately 1-1/2 cm in diameter, palpable in the gallbladder neck. This was sent for permanent pathology. The fascia at the midline, particularly in the midpoint was somewhat thinned. The fascia was closed with interrupted simple and [id number] sutures of #2-0 Vicryl. Particularly in the center portion of the incision wider bites of tissue were taken to achieve a secure closure. A single #2-0 Vicryl was used to approximate the subcutaneous tissues. The skin incisions were then all closed with buried #5-0 Vicryl and Steri-Strips. The patient tolerated the procedure well without apparent complication. He was awakened in the operating room, extubated and moved to the recovery room in stable condition.
[2016-06-05 10:00] VITALS: BP 155/76
[2016-06-05] MEDS ORDERED: PERCOCET PO (12:46)
--- NOTE | 2016-06-06 13:06 | EDDOCDS ---
Physician Documentation [facility] Name: Ramon Davis Age: 56 yrs Sex: Male : 1960 Arrival Date: 06/04/2016 Time: 00:36 Bed 15 Private MD: Disposition: 06/04/16 11:22 Hospitalization ordered by John Cantrell for Inpatient Admission. Preliminary diagnosis is Cholecystitis. - Bed requested for Admit. - Status is Inpatient Admission. ar3 - Condition is Stable. - Problem is new. - Symptoms are unchanged. Historical: - Allergies: PENICILLINS; Latex; Adhesives; - Home Meds: 1. simvastatin 10 mg Oral tab 1 tab once daily (Last dose: 06/03/2016) 2. lisinopril 10 mg Oral tab 1 tab once daily (Last dose: 06/03/2016) 3. Vitamin D2 50,000 unit oral cap 1 cap once daily (Last dose: 06/03/2016) 4. cetirizine 5 mg oral tab 1 tab once daily - PMHx: Hypercholesterolemia; Hypertension; Cancer, Skin; - PSHx: Partial amputation Left foot; Right eye removal; Shoulder replacement X3; - Social history: Smoking status: Patient states former smoker of tobacco. No barriers to communication noted, The patient speaks fluent [place], Speaks appropriately for age. - Family history: No immediate family members are acutely ill. - : The pt / caregiver states he / she is not on anticoagulants. Home medication list is obtained from the patient. - Exposure Risk Screening:: None identified. Vital Signs: 06/04 00:55 BP 192 / 87; Pulse 58; Resp 22; Temp 96.3(O); Pulse Ox 96% on R/A; Weight 81.65 kg / kmg1 180.01 lbs; Height 5 ft. 4 in. (162.56 cm); Pain 10/10; 04:09 BP 162 / 80; Pulse 73; Resp 18; Temp 99.6(TE); Pulse Ox 98% on R/A; Pain 5/10; slime 07:38 BP 186 / 79; Pulse 76; Resp 18; Temp 99(O); Pulse Ox 96% on R/A; Pain 2/10; ja5 09:25 Pain 3/10; ja5 09:40 BP 162 / 77; Pulse 63; Resp 18; Pulse Ox 94% on R/A; Pain 3/10; dsf 09:40 BP 162 / 77; dsf 11:42 BP 154 / 79; Pulse 64; Resp 18; Temp 99.1(TE); Pulse Ox 95% on R/A; Pain 0/10; nb2 00:55 Body Mass Index 30.90 (81.65 kg, 162.56 cm) kmg1 MDM: 01:25 Undress patient appropriately for examination ordered. may 14: IV Saline Lock ordered. may 14: Amylase Ordered. EDMS 01:26 Basic Metabolic Profile Ordered. EDMS 01:26 CBC with Diff Ordered. EDMS 01:26 Lipase Ordered. EDMS 01:26 Liver Profile Ordered. EDMS 01:26 Urinalysis Ordered. EDMS 01:26 NOTHING BY MOUTH+DIET ordered. EDMS 03:33 Basic Metabolic Profile Reviewed. cs11 03:33 CBC with Diff Reviewed. cs11 03:33 Liver Profile Reviewed. cs11 03:33 Urinalysis Reviewed. cs11 03:33 Amylase Reviewed. cs11 03:33 Lipase Reviewed. cs11 03:34 NS 0.9% 1000 ml IV at bolus once ordered. cs11 03:34 Dilaudid - HYDROmorphone 1 mg IVP once ordered. cs11 03:35 CT ABD & PELVIS: IV Contrast Only Ordered. EDMS 03:36 Financial registration complete. [facility] 03:56 [facility] Payment Agreement was scanned into [employer] and attached to record. slh 04:04 diphenhydrAMINE 25 mg IVP once ordered. cs11 04:04 Dexamethasone 15 mg IV at bolus once ordered. cs11 04:09 Urine Culture Ordered. EDMS 04:12 Ondansetron 8 mg IVP once ordered. cs11 06:46 Ultrasound Abd Limited Ordered. EDMS 08:05 Lisinopril 10 mg PO once ordered. br1 08:26 Dilaudid - HYDROmorphone 0.5 mg IVP once ordered. br1 09:01 BED REQUEST+ADM ordered. EDMS 09:43 Promethazine 12.5 mg IVP once; dilute and administer 30-60 minutes ordered. br1 11:21 ELECTROCARDIOGRAM ADULT ordered. EDMS 11:25 LR Solution 1000 ml IV at 150 mL/hr once ordered. bcj 11:25 Ertapenem 1 grams IVPB once over 30 mins; dilute in 50mL of NS ordered. [facility] 13:06 PATHOLOGY REQUEST FOR SERVICE Ordered. EDMS 21:06 T-Sheet-- Draft Copy was scanned into [employer] and attached to record. klr Administered Medications: 04:06 Drug: NS 0.9% 1000 ml [sodium chloride 0.9 % intravenous solution] Route: IV; Rate: mlc bolus; Site: left antecubital; 12:00 Follow up: IV Status: Completed infusion; IV Intake: 1000ml dsf 04:07 Drug: Dilaudid - HYDROmorphone 1 mg [hydromorphone 1 mg/mL injection syringe (1 mL)] mlc Route: IVP; Site: left antecubital; 04:29 Drug: diphenhydrAMINE 25 mg [diphenhydramine 50 mg/mL injection solution (0.5 mL)] mlc Route: IVP; Site: left antecubital; 04:30 Drug: Dexamethasone 15 mg [dexamethasone 4 mg/mL injection solution] Route: IV; Rate: mlc bolus; Site: left antecubital; 04:30 Drug: Ondansetron 8 mg [ondansetron HCl 2 mg/mL intravenous solution (3.75 mL)] Route: mlc IVP; Site: left antecubital; 08:20 Drug: Lisinopril 10 mg [lisinopril 10 mg tablet (1 tabs)] Route: PO; 09:40 Follow up: BP 162 / 77 dsf 08:39 Drug: Dilaudid - HYDROmorphone 0.5 mg [hydromorphone 1 mg/mL injection syringe (0.5 ja5 mL)] Route: IVP; Site: left antecubital; 09:25 Follow up: Pain 3/10 Adult ja5 09:40 Follow up: BP 162 / 77; Pulse 63 bpm; Resp 18 bpm; Pulse Ox 94% RA; Pain 3/10 Adult dsf 09:48 Drug: Promethazine 12.5 mg [promethazine 25 mg/mL injection solution (0.5 mL)] Route: dsf IVP; Site: left antecubital; 11:00 Follow up: Response: Nausea is decreased dsf 11:25 Drug: LR 1000 ml [lactated ringers intravenous solution] Route: IV; Rate: 125 mL/hr; [facility] Site: left antecubital; 11:46 Follow up: IV Status: Infusion continued upon admit bc 11:25 Drug: Ertapenem 1 grams [ertapenem 1 gram solution for injection] Route: IVPB; Infused bcj Over: 30 mins; Site: left antecubital; 11:46 Follow up: IV Status: Completed infusion bcj Signatures: Dispatcher [employer] Rafaela Mackenzie RN RN kmg1 Adonay Olivier RN RN bcj Lawrence, Esme Peña RN Cabrera Arthur MD MD br1 Yanely Araiza, REVIEW ANALYST REVIEW ANALYST ar3 Diogenes Gerard, DO 11 Corrina Chamorro [facility] Shani Adams Desiree RN dsf Booth, Mandy RN mlc Anderson, Jessica RN ja5 The chart was reviewed and I authenticate all verbal orders and agree with the evaluation and treatment provided.Attachments: 03:56 [facility] Payment Agreement [facility] 21:06 T-Sheet-- Draft Copy klgalina Chart Complete MTDD
--- NOTE | 2016-06-06 13:06 | EDDOCDS ---
Nurse's Notes [facility] Name: Ramon Davis Age: 56 yrs Sex: Male : 1960 Arrival Date: 06/04/2016 Time: 00:36 Bed 15 Private MD: Diagnosis: Cholecystitis Presentation: 06/04 00:50 Presenting complaint: Patient states: Severe abdominal cramping. Vomiting, diarrhea kmg1 since 1999. Suicide/Homicide risk assessment- the patient denies having any suicidal and/or homicidal ideations and does not present with any other emotional, behavioral or mental health complaints. Status: Patient is not a in service coordinator or dependent. Transition of care: patient was not received from another setting of care. 00:50 Acuity: JACOBY Level 3 kmg1 00:50 Method Of Arrival: Walkin/Carried/Asstd km 07:39 Adult Sepsis Screening: The patient does not have new or worsening altered mentation. ja5 Patient's respiratory rate is less than 22. Systolic blood pressure is greater than 100. Patient has a qSOFA score of 0- Negative Sepsis Screen. Triage Assessment: 00:55 General: Appears uncomfortable, Behavior is restless. Pain: Location: epigastric area kmg1 Pain currently is 10 out of 10 on a pain scale. Quality of pain is described as crampy, sharp. HIV screening NA for this visit Offered previously. GI: Reports diarrhea, upper abdominal pain, nausea, vomiting. Historical: - Allergies: PENICILLINS; Latex; Adhesives; - Home Meds: 1. simvastatin 10 mg Oral tab 1 tab once daily (Last dose: 06/03/2016) 2. lisinopril 10 mg Oral tab 1 tab once daily (Last dose: 06/03/2016) 3. Vitamin D2 50,000 unit oral cap 1 cap once daily (Last dose: 06/03/2016) 4. cetirizine 5 mg oral tab 1 tab once daily - PMHx: Hypercholesterolemia; Hypertension; Cancer, Skin; - PSHx: Partial amputation Left foot; Right eye removal; Shoulder replacement X3; - Social history: Smoking status: Patient states former smoker of tobacco. No barriers to communication noted, The patient speaks fluent Latvian, Speaks appropriately for age. - Family history: No immediate family members are acutely ill. - : The pt / caregiver states he / she is not on anticoagulants. Home medication list is obtained from the patient. - Exposure Risk Screening:: None identified. Screenin:47 Screening information is obtained from the patient. Fall risk: No risks identified. kmg1 Assistance ADL's: requires no assistance with activities of daily living. Abuse/DV Screen: The patient / caregiver reports he/she is: not in a situation that causes fear, pain or injury. Nutritional screening: No deficits noted. home support is adequate. 07:42 Advance Directives: Currently, there is no health care proxy. There is no active DNR ja5 order. There is no living will. 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 Assessment: 01:46 General: Appears ill, uncomfortable, Behavior is restless. Pain: Location: epigastric kmg1 area Pain currently is 10 out of 10 on a pain scale. GI: Abdomen is non- distended Pt is actively vomiting clear fluid, Bowel sounds present X 4 quads. Abd is soft X 4 quads Abd is tender to palpation in epigastric area. 02:45 General: Appears uncomfortable, Behavior is restless. Pain: Pain currently is 10 out of kmg1 10 on a pain scale. 03:45 Reassessment: Patient states symptoms have not improved. Remains restless. kmg1 04:30 Reassessment: Patient states feeling better. Patient states symptoms have improved. kmg1 Pain: Pain currently is 3 out of 10 on a pain scale. 05:41 Reassessment: Patient appears in no apparent distress at this time. Patient states kmg1 feeling better. Patient states symptoms have improved. 06:47 Reassessment: Patient appears in no apparent distress at this time. Patient states kmg1 feeling better. Patient states symptoms have improved. 07:40 General: Appears in no apparent distress, comfortable, Behavior is appropriate for age, ja5 cooperative. Pain: Location: abdomen Pain currently is 2 out of 10 on a pain scale. 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 Cardiovascular: Heart tones S1 S2 present. Respiratory: Airway is patent Respiratory effort is even, unlabored, Breath sounds are clear. GI: Abdomen is distended, Bowel sounds present X 4 quads. Abd is soft Abd is tender to palpation. Derm: Skin is intact, Skin is Skin is pink, warm & dry. 08:28 General: Patient resting in stretcher with reports of increased pain to abdomen 4/10, ja5 new orders for pain medication received. . 09:26 General: Patient resting in stretcher, pain has decreased to 3/10 at this time.. ja5 09:40 General: Appears in no apparent distress, Behavior is appropriate for age, cooperative. dsf Pain: Location: epigastric area, right upper quadrant and left upper quadrant Pain currently is 3 out of 10 on a pain scale. Quality of pain is described as sharp, throbbing. Neurological: Level of Consciousness is awake, alert, Oriented to person, place, time. Cardiovascular: Capillary refill < 3 seconds Heart tones S1 S2 present. Respiratory: Airway is patent Respiratory effort is even, unlabored, Respiratory pattern is regular, symmetrical, Breath sounds are clear bilaterally. GI: Abdomen is non- distended Bowel sounds present X 4 quads. Abd is soft X 4 quads Abd is tender to palpation in epigastric area, right upper quadrant and left upper quadrant Reports upper abdominal pain, nausea. Derm: Skin is pink, warm & dry. 10:00 General: Dr. Cantrell in room examining patient . dsf 11:01 Adult Sepsis Screening: The patient does not have new or worsening altered mentation. dsf Patient's respiratory rate is less than 22. Systolic blood pressure is greater than 100. Patient has a qSOFA score of 0- Negative Sepsis Screen. General: Appears in no apparent distress, comfortable, Behavior is appropriate for age, cooperative. Pain: Location: left upper quadrant and right upper quadrant and epigastric area Pain currently is 2 out of 10 on a pain scale. Neurological: Level of Consciousness is awake, alert. Cardiovascular: Capillary refill < 3 seconds. Respiratory: Airway is patent Respiratory effort is even, unlabored, Respiratory pattern is regular, symmetrical. GI: Reports nausea is better. Derm: Skin is pink, warm & dry. 11:43 General: Appears in no apparent distress, comfortable, Behavior is cooperative. Pain: bcj Denies pain. GI: Abdomen is non- distended. Derm: Skin is pink, warm & dry. Vital Signs: 00:55 BP 192 / 87; Pulse 58; Resp 22; Temp 96.3(O); Pulse Ox 96% on R/A; Weight 81.65 kg; kmg1 Height 5 ft. 4 in. (162.56 cm); Pain 10/10; 04:09 BP 162 / 80; Pulse 73; Resp 18; Temp 99.6(TE); Pulse Ox 98% on R/A; Pain 5/10; slime 07:38 BP 186 / 79; Pulse 76; Resp 18; Temp 99(O); Pulse Ox 96% on R/A; Pain 2/10; ja5 09:25 Pain 3/10; ja5 09:40 BP 162 / 77; Pulse 63; Resp 18; Pulse Ox 94% on R/A; Pain 3/10; dsf 09:40 BP 162 / 77; dsf 11:42 BP 154 / 79; Pulse 64; Resp 18; Temp 99.1(TE); Pulse Ox 95% on R/A; Pain 0/10; nb2 00:55 Body Mass Index 30.90 (81.65 kg, 162.56 cm) [facility] Vitals: 00:55 Log In Time: June 04, 2016 at 00:36. [facility] ED Course: 00:38 Patient visited by Abby Coles. gjb 00:38 Patient moved to Waiting gjb 00:51 Triage Initiated kmg1 00:59 Patient moved to 15 kmg1 01:46 Amylase Sent. kmg1 01:46 Basic Metabolic Profile Sent. kmg1 01:46 CBC with Diff Sent. kmg1 01:46 Lipase Sent. kmg1 01:46 Liver Profile Sent. kmg1 01:46 Urinalysis Sent. kmg1 01:47 The patient / caregiver is instructed regarding the plan of care and ED course. kmg1 01:47 Inserted saline lock: 20 gauge in left antecubital area. Labs drawn. (by ED staff). kmg1 Sent per order to lab. Urine collected. Clean catch specimen. Urine specimen sent to lab. 01:47 No procedures done that require assistance. kmg1 01:48 Patient visited by Rafaela Trinidad RN. kmg1 03:03 Patient visited by Prachi Lee PCA. slime 03:29 Diogenes Gerard DO is Attending Physician. cs11 03:29 Patient visited by Diogenes Gerard DO. cs11 03:56 [facility] Payment Agreement was scanned into [employer] and attached to record. sl 04:10 Patient visited by Prachi Lee PCA. slime 05:41 Patient visited by Rafaela Trinidad RN. kmg1 06:35 CT ABD & PELVIS: IV Contrast Only Returned. EDMS 06:51 Patient visited by Rafaela Trinidad, KAY. kmg1 06:57 Attending Physician role handed off by Diogenes Gerard DO br1 06:57 Cabrear Ortega MD is Attending Physician. br1 07:07 Carol Ann Juarez,RN is Primary Nurse. ja5 07:22 Annel Flood, KAY is Primary Nurse. jc4 07:35 Patient moved to Ultrasound sm5 07:38 Patient visited by Carol Ann Juarez RN. ja5 08:04 Patient moved to 15 sm5 08:27 Patient visited by Carol Ann Juarez,KAY. ja5 08:29 Patient visited by Carol Ann Juarez,KAY. ja5 08:41 Patient visited by Carol Ann Juarez RN. ja5 09:26 Patient visited by Carol Ann Juarez RN. ja5 09:41 Patient visited by Zabrina Lamar RN. dsf 09:45 Ultrasound Abd Limited Returned. EDMS 10:27 Patient visited by Zabrina Lamar RN. dsf 11:01 Patient visited by Fransisca Taylor PCA. ct3 11:01 Patient visited by Zabrina Lamar,KAY. dsf 11:22 John Cantrell is Hospitalizing Provider. br1 11:25 EKG done. (by ED staff). Reviewed by Cabrera Ortega MD. nb2 11:28 Patient visited by Rajwinder Estrada. nb2 11:42 Patient visited by Rajwinder Estrada. nb2 11:47 No apparent distress. Resting quietly. Awaiting OR. bcj 11:47 IV is intact. bcj 21:06 T-Sheet-- Draft Copy was scanned into [employer] and attached to record. klr Administered Medications: 04:06 Drug: NS 0.9% 1000 ml [sodium chloride 0.9 % intravenous solution] Route: IV; Rate: mlc bolus; Site: left antecubital; 12:00 Follow up: IV Status: Completed infusion; IV Intake: 1000ml dsf 04:07 Drug: Dilaudid - HYDROmorphone 1 mg [hydromorphone 1 mg/mL injection syringe (1 mL)] mlc Route: IVP; Site: left antecubital; 04:29 Drug: diphenhydrAMINE 25 mg [diphenhydramine 50 mg/mL injection solution (0.5 mL)] mlc Route: IVP; Site: left antecubital; 04:30 Drug: Dexamethasone 15 mg [dexamethasone 4 mg/mL injection solution] Route: IV; Rate: mlc bolus; Site: left antecubital; 04:30 Drug: Ondansetron 8 mg [ondansetron HCl 2 mg/mL intravenous solution (3.75 mL)] Route: mlc IVP; Site: left antecubital; 08:20 Drug: Lisinopril 10 mg [lisinopril 10 mg tablet (1 tabs)] Route: PO; ja5 09:40 Follow up: BP 162 / 77 dsf 08:39 Drug: Dilaudid - HYDROmorphone 0.5 mg [hydromorphone 1 mg/mL injection syringe (0.5 ja5 mL)] Route: IVP; Site: left antecubital; 09:25 Follow up: Pain 310 Adult ja5 09:40 Follow up: BP 162 / 77; Pulse 63 bpm; Resp 18 bpm; Pulse Ox 94% RA; Pain 07/21 Adult dsf 09:48 Drug: Promethazine 12.5 mg [promethazine 25 mg/mL injection solution (0.5 mL)] Route: dsf IVP; Site: left antecubital; 11:00 Follow up: Response: Nausea is decreased dsf 11:25 Drug: LR 1000 ml [lactated ringers intravenous solution] Route: IV; Rate: 125 mL/hr; bcj Site: left antecubital; 11:46 Follow up: IV Status: Infusion continued upon admit bcj 11:25 Drug: Ertapenem 1 grams [ertapenem 1 gram solution for injection] Route: IVPB; Infused bcj Over: 30 mins; Site: left antecubital; 11:46 Follow up: IV Status: Completed infusion bcj Intake: 12:00 IV: 1000.00ml; Total: 1000.00ml. dsf Output: 06:51 Urine: 600.00ml (Voided); Total: 600.00ml. kmg1 Order Results: Lab Order: Amylase; SPEC'M 06/04/16 01:42 Test: AMYLASE; Value: 37; Range: 25-115; Units: U/L; Status: F Lab Order: Basic Metabolic Profile; SPEC'M 06/04/16 01:42 Test: GLUCOSE, FASTING; Value: 150; Range: 70-105; Abnormal: Above high normal; Units: MG/DL; Status: F Test: BLOOD UREA NITROGEN; Value: 18; Range: 7-18; Units: MG/DL; Status: F Test: CREATININE FOR GFR; Value: 1.05; Range: 0.70-1.30; Units: MG/DL; Status: F Test: GLOMERULAR FILTRATION RATE; Value: > 60.0; Range: >56; Status: F Test: SODIUM LEVEL; Value: 142; Range: 136-145; Units: MEQ/L; Status: F Test: POTASSIUM SERUM; Value: 3.4; Range: 3.5-5.1; Abnormal: Below low normal; Units: MEQ/L; Status: F Test: CHLORIDE LEVEL; Value: 105; Range: 98-107; Units: MEQ/L; Status: F Test: CARBON DIOXIDE LEVEL; Value: 26; Range: 21-32; Units: MEQ/L; Status: F Test: ANION GAP; Value: 11; Range: 8-16; Units: MEQ/L; Status: F Test: CALCIUM LEVEL; Value: 9.1; Range: 8.5-10.1; Units: MG/DL; Status: F Test Note: ; Units are mL/min/1.73 m2 Chronic Kidney Disease Staging per NKF: Stage I & II GFR >=60 Normal to Mildly Decreased Stage III GFR 30-59 Moderately Decreased Stage IV GFR 15-29 Severely Decreased Stage V GFR <15 Very Little GFR Left ESRD GFR <15 on [facility] Lab Order: CBC with Diff; SPEC'M 06/04/16 01:42 Test: WHITE BLOOD COUNT; Value: 10.3; Range: 4.0-10.0; Abnormal: Above high normal; Units: K/mm3; Status: F Test: RED BLOOD COUNT; Value: 5.14; Range: 4.30-6.10; Units: M/mm3; Status: F Test: HEMOGLOBIN; Value: 15.1; Range: 14.0-18.0; Units: g/dl; Status: F Test: HEMATOCRIT; Value: 44.7; Range: 42.0-52.0; Units: %; Status: F Test: MEAN CORPUSCULAR VOLUME; Value: 87.0; Range: 80.0-96.0; Units: fl; Status: F Test: MEAN CORPUSCULAR HEMOGLOBIN; Value: 29.3; Range: 27.0-33.0; Units: pg; Status: F Test: MEAN CORPUSCULAR HGB CONC; Value: 33.7; Range: 32.0-36.5; Units: g/dl; Status: F Test: RED CELL DISTRIBUTION WIDTH; Value: 14.0; Range: 11.5-14.5; Units: %; Status: F Test: PLATELET COUNT, AUTOMATED; Value: 268; Range: 150-450; Units: k/mm3; Status: F Test: NEUTROPHILS %; Value: 90.1; Range: 36.0-66.0; Abnormal: Above high normal; Units: %; Status: F Test: LYMPH %; Value: 6.4; Range: 24.0-44.0; Abnormal: Below low normal; Units: %; Status: F Test: MONO %; Value: 2.2; Range: 0.0-5.0; Units: %; Status: F Test: EOS %; Value: 0.5; Range: 0.0-3.0; Units: %; Status: F Test: BASO %; Value: 0.5; Range: 0.0-1.0; Units: %; Status: F Test: LARGE UNSTAINED CELL %; Value: 0.3; Range: 0.0-4.0; Units: %; Status: F Test: NEUTROPHILS #; Value: 9.3; Range: 1.8-7.7; Abnormal: Above high normal; Units: K/mm3; Status: F Test: LYMPH #; Value: 0.7; Range: 1.5-4.5; Abnormal: Below low normal; Units: K/mm3; Status: F Test: MONO #; Value: 0.2; Range: 0.0-0.8; Units: K/mm3; Status: F Test: EOS #; Value: 0.1; Range: 0.0-0.50; Units: K/mm3; Status: F Test: BASO #; Value: 0.0; Range: 0.0-0.2; Units: K/mm3; Status: F Test: LARGE UNSTAINED CELL #; Value: 0.0; Range: 0.0-0.4; Units: K/mm3; Status: F Lab Order: Lipase; SPEC'M 06/04/16 01:42 Test: LIPASE; Value: 90; Range: 73-393; Units: U/L; Status: F Lab Order: Liver Profile; SPEC'M 06/04/16 01:42 Test: AST/SGOT; Value: 14; Range: 15-37; Abnormal: Below low normal; Units: U/L; Status: F Test: ALT/SGPT; Value: 21; Range: 12-78; Units: U/L; Status: F Test: ALKALINE PHOSPHATASE; Value: 54; Range: 45-117; Units: U/L; Status: F Test: BILIRUBIN,TOTAL; Value: 0.3; Range: 0.2-1.0; Units: MG/DL; Status: F Test: BILIRUBIN,DIRECT; Value: < 0.1; Range: 0.0-0.2; Units: MG/DL; Status: F Test: TOTAL PROTEIN; Value: 7.6; Range: 6.4-8.2; Units: GM/DL; Status: F Test: ALBUMIN; Value: 4.0; Range: 3.2-5.2; Units: GM/DL; Status: F Test: ALBUMIN/GLOBULIN RATIO; Value: 1.11; Range: 1.00-1.93; Status: F Lab Order: Urinalysis; SPEC'M 06/04/16 01:43 Test: APPEARANCE, URINE; Value: CLEAR; Range: CLEAR; Status: F Test: COLOR, URINE; Value: YELLOW; Range: YELLOW; Status: F Test: PH,URINE; Value: 7.0; Range: 5.0-9.0; Units: UNITS; Status: F Test: SPECIFIC GRAVITY URINE AUTO; Value: 1.016; Range: 1.002-1.035; Status: F Test: PROTEIN, URINE AUTO; Value: NEGATIVE; Range: NEGATIVE; Units: mg/dL; Status: F Test: GLUCOSE, URINE (UA) AUTO; Value: 1+; Range: NEGATIVE; Abnormal: Above high normal; Units: mg/dL; Status: F Test: KETONE, URINE AUTO; Value: 2+; Range: NEGATIVE; Abnormal: Above high normal; Units: mg/dL; Status: F Test: UROBILINOGEN, URINE AUTO; Value: 0.2; Range: 0.0-2.0; Units: mg/dL; Status: F Test: BILIRUBIN, URINE AUTO; Value: NEGATIVE; Range: NEGATIVE; Status: F Test: NITRITE, URINE AUTO; Value: NEGATIVE; Range: NEGATIVE; Status: F Test: LEUKOCYTE ESTERASE, URINE AUTO; Value: NEGATIVE; Range: NEGATIVE; Status: F Test: BLOOD, URINE BLOOD; Value: 2+; Range: NEGATIVE; Abnormal: Above high normal; Status: F Test: WBC, URINE AUTO; Value: 2; Range: 0-3; Units: /HPF; Status: F Test: RBC, URINE AUTO; Value: 12; Range: 0-3; Abnormal: Above high normal; Units: /HPF; Status: F Test: BACTERIA, URINE AUTO; Value: NEGATIVE; Range: NEGATIVE; Status: F Test: SQUAMOUS EPITHELIAL CELL UR AU; Value: 0; Range: 0-6; Units: /HPF; Status: F Test: MUCUS, URINE; Value: SMALL; Range: NEGATIVE; Status: F Test: HYALINE CAST, URINE AUTO; Value: 0; Range: 0-1; Units: /LPF; Status: F Radiology Order: CT ABD & PELVIS: IV Contrast Only Test: CT ABD & PELVIS: IV Contrast Only REASON FOR EXAMINATION: Abdomen Pain; ; CLINICAL HISTORY: Abdominal pain.; TECHNIQUE: Multiple axial, sagittal and coronal CT images were obtained through the abdomen and pelvi; s after administration of intravenous contrast material.; COMMENTS:; The liver is mildly enlarged with decreased attenuation without mass or defect. There is no intra or; extrahepatic biliary ductal dilatation. The spleen is normal. The gallbladder is diffusely thickened.; Mild pericholecystic fat stranding. The pancreas is of normal contour and attenuation characteristic; s. There is no evidence of adrenal mass.; Multifocal scarring of the right kidney. Right renal simple cyst.; Both kidneys demonstrate prompt and equal nephrograms. The kidneys are otherwise normal in size, shap; e and configuration. There is no evidence of renal or ureteral mass. No renal or ureteral calculi are; identified. There is no hydroureter or hydronephrosis.; No evidence for appendicitis. There is thickening of the mid aspect of the sigmoid colon.. No eviden; ce for small or large bowel obstruction. There is no evidence of abdominal ascites or lymphadenopathy; .; There is no evidence of intrinsic or extrinsic bladder mass. Moderate prostatomegaly. Prostatic calci; fications. Thickened bladder. There is no pelvic ascites or lymphadenopathy. Mild large bowel fecal s; tasis. Uncomplicated clonic diverticulosis.; Images of the lung bases show no evidence of pleural or parenchymal mass. There are no pleural effusi; ons.; The bony structures are free of lytic or blastic lesions. Multilevel degenerative changes are seen in; volving the thoracolumbar spine. Scattered calcifications are seen involving the aorta and major bran; ches compatible with atherosclerosis.; IMPRESSION:; Mild hepatomegaly with fatty liver infiltration.; Diffuse thickening of the wall of the gallbladder with pericholecystic fat stranding. Mild changes of; acute cholecystitis are suspected. Ultrasound exam is helpful to further evaluate this finding.; Thickening of the mid aspect of the sigmoid. Under distention versus mild colitis.; Sigmoid diverticulosis.; Moderate prostatomegaly. Prostatic calcifications.; Thickened bladder.; Thank you for your kind referral of this patient.; ; Radiology Order: Ultrasound Abd Limited Test: Ultrasound Abd Limited REASON FOR EXAMINATION: Biliary Colic; Right upper quadrant sonography:; ; History: Biliary colic.; ; Comparison is made with CT study done earlier this date.; ; Findings: Scanning through the right upper quadrant demonstrates a somewhat; dilated, slightly thick-walled gallbladder. Gallbladder measures 10.5 cm in; length. The gallbladder wall is 0.36 cm in thickness. There is evidence of a; shadowing calculous in the cystic duct. There is tenderness to scanning over the; gallbladder. There is evidence of fatty infiltration of the liver. Common bile; duct is dilated measuring 1.84 cm. No intrahepatic ductal dilation is seen. The; scan quality is somewhat limited due to high liver position. No right renal; abnormality or ascites is seen. The right kidney measures 11.0 x 5.3 x 4.3 cm.; ; Impression:; ; Dilated, thick-walled gallbladder containing a shadowing calculus in the cystic; duct. Dilated CBD 1.8 cm. Fatty infiltration of the liver.; ; ; Signed by; Chivo Ortega MD 06/04/2016 01:11 P; Outcome: 11:22 Decision to Hospitalize by Provider. br1 12:04 Patient left the ED. ar3 Signatures: Dispatcher [employer] EDMS Rafaela Trinidad, RN RN kmg1 Adonay Olivier, RN RN Elizabeth Fortune sm5 Cabrera Ortega MD MD br1 Teodora, Yanely, BOMBSIGHT SPECIALIST BOMBSIGHT SPECIALIST ar3 Annel Flood, RN RN jc4 Prachi Lee, BOMBSIGHT SPECIALIST BOMBSIGHT SPECIALIST slime Claudia, Fransisca, BOMBSIGHT SPECIALIST BOMBSIGHT SPECIALIST ct3 Zabrina Lamar,RN RN dsf Diogenes Gerard, DO cs11 Belen Brunner,RN RN Corrina Mancuso Gabriela gjb Redder, Kathie klr Baart, Nicole nb2 Anderson, Jessica,RN RN ja5 Chart Complete [facility]
--- NOTE | 2016-06-06 13:06 | EDDOCDS ---
Physician Documentation [facility] Name: Ramon Davis Age: 56 yrs Sex: Male : 1960 Arrival Date: 06/04/2016 Time: 00:36 Bed 15 Private MD: Disposition: 06/04/16 11:22 Hospitalization ordered by John Cantrell for Inpatient Admission. Preliminary diagnosis is Cholecystitis. - Bed requested for Admit. - Status is Inpatient Admission. ar3 - Condition is Stable. - Problem is new. - Symptoms are unchanged. Historical: - Allergies: PENICILLINS; Latex; Adhesives; - Home Meds: 1. simvastatin 10 mg Oral tab 1 tab once daily (Last dose: 06/03/2016) 2. lisinopril 10 mg Oral tab 1 tab once daily (Last dose: 06/03/2016) 3. Vitamin D2 50,000 unit oral cap 1 cap once daily (Last dose: 06/03/2016) 4. cetirizine 5 mg oral tab 1 tab once daily - PMHx: Hypercholesterolemia; Hypertension; Cancer, Skin; - PSHx: Partial amputation Left foot; Right eye removal; Shoulder replacement X3; - Social history: Smoking status: Patient states former smoker of tobacco. No barriers to communication noted, The patient speaks fluent Estonian, Speaks appropriately for age. - Family history: No immediate family members are acutely ill. - : The pt / caregiver states he / she is not on anticoagulants. Home medication list is obtained from the patient. - Exposure Risk Screening:: None identified. Vital Signs: 06/04 00:55 BP 192 / 87; Pulse 58; Resp 22; Temp 96.3(O); Pulse Ox 96% on R/A; Weight 81.65 kg / kmg1 180.01 lbs; Height 5 ft. 4 in. (162.56 cm); Pain 10/10; 04:09 BP 162 / 80; Pulse 73; Resp 18; Temp 99.6(TE); Pulse Ox 98% on R/A; Pain 5/10; slime 07:38 BP 186 / 79; Pulse 76; Resp 18; Temp 99(O); Pulse Ox 96% on R/A; Pain 2/10; ja5 09:25 Pain 3/10; ja5 09:40 BP 162 / 77; Pulse 63; Resp 18; Pulse Ox 94% on R/A; Pain 3/10; dsf 09:40 BP 162 / 77; dsf 11:42 BP 154 / 79; Pulse 64; Resp 18; Temp 99.1(TE); Pulse Ox 95% on R/A; Pain 0/10; nb2 00:55 Body Mass Index 30.90 (81.65 kg, 162.56 cm) kmg1 MDM: 01:25 Undress patient appropriately for examination ordered. may 14: IV Saline Lock ordered. may 14: Amylase Ordered. EDMS 01:26 Basic Metabolic Profile Ordered. EDMS 01:26 CBC with Diff Ordered. EDMS 01:26 Lipase Ordered. EDMS 01:26 Liver Profile Ordered. EDMS 01:26 Urinalysis Ordered. EDMS 01:26 NOTHING BY MOUTH+DIET ordered. EDMS 03:33 Basic Metabolic Profile Reviewed. cs11 03:33 CBC with Diff Reviewed. cs11 03:33 Liver Profile Reviewed. cs11 03:33 Urinalysis Reviewed. cs11 03:33 Amylase Reviewed. cs11 03:33 Lipase Reviewed. cs11 03:34 NS 0.9% 1000 ml IV at bolus once ordered. cs11 03:34 Dilaudid - HYDROmorphone 1 mg IVP once ordered. cs11 03:35 CT ABD & PELVIS: IV Contrast Only Ordered. EDMS 03:36 Financial registration complete. [facility] 03:56 [facility] Payment Agreement was scanned into [employer] and attached to record. slh 04:04 diphenhydrAMINE 25 mg IVP once ordered. cs11 04:04 Dexamethasone 15 mg IV at bolus once ordered. cs11 04:09 Urine Culture Ordered. EDMS 04:12 Ondansetron 8 mg IVP once ordered. cs11 06:46 Ultrasound Abd Limited Ordered. EDMS 08:05 Lisinopril 10 mg PO once ordered. br1 08:26 Dilaudid - HYDROmorphone 0.5 mg IVP once ordered. br1 09:01 BED REQUEST+ADM ordered. EDMS 09:43 Promethazine 12.5 mg IVP once; dilute and administer 30-60 minutes ordered. br1 11:21 ELECTROCARDIOGRAM ADULT ordered. EDMS 11:25 LR Solution 1000 ml IV at 150 mL/hr once ordered. bcj 11:25 Ertapenem 1 grams IVPB once over 30 mins; dilute in 50mL of NS ordered. [facility] 13:06 PATHOLOGY REQUEST FOR SERVICE Ordered. EDMS 21:06 T-Sheet-- Draft Copy was scanned into [employer] and attached to record. klr Administered Medications: 04:06 Drug: NS 0.9% 1000 ml [sodium chloride 0.9 % intravenous solution] Route: IV; Rate: mlc bolus; Site: left antecubital; 12:00 Follow up: IV Status: Completed infusion; IV Intake: 1000ml dsf 04:07 Drug: Dilaudid - HYDROmorphone 1 mg [hydromorphone 1 mg/mL injection syringe (1 mL)] mlc Route: IVP; Site: left antecubital; 04:29 Drug: diphenhydrAMINE 25 mg [diphenhydramine 50 mg/mL injection solution (0.5 mL)] mlc Route: IVP; Site: left antecubital; 04:30 Drug: Dexamethasone 15 mg [dexamethasone 4 mg/mL injection solution] Route: IV; Rate: mlc bolus; Site: left antecubital; 04:30 Drug: Ondansetron 8 mg [ondansetron HCl 2 mg/mL intravenous solution (3.75 mL)] Route: mlc IVP; Site: left antecubital; 08:20 Drug: Lisinopril 10 mg [lisinopril 10 mg tablet (1 tabs)] Route: PO; 09:40 Follow up: BP 162 / 77 dsf 08:39 Drug: Dilaudid - HYDROmorphone 0.5 mg [hydromorphone 1 mg/mL injection syringe (0.5 ja5 mL)] Route: IVP; Site: left antecubital; 09:25 Follow up: Pain 3/10 Adult ja5 09:40 Follow up: BP 162 / 77; Pulse 63 bpm; Resp 18 bpm; Pulse Ox 94% RA; Pain 3/10 Adult dsf 09:48 Drug: Promethazine 12.5 mg [promethazine 25 mg/mL injection solution (0.5 mL)] Route: dsf IVP; Site: left antecubital; 11:00 Follow up: Response: Nausea is decreased dsf 11:25 Drug: LR 1000 ml [lactated ringers intravenous solution] Route: IV; Rate: 125 mL/hr; [facility] Site: left antecubital; 11:46 Follow up: IV Status: Infusion continued upon admit bc 11:25 Drug: Ertapenem 1 grams [ertapenem 1 gram solution for injection] Route: IVPB; Infused bcj Over: 30 mins; Site: left antecubital; 11:46 Follow up: IV Status: Completed infusion bcj Signatures: Dispatcher [employer] Rafaela Mackenzie RN RN kmg1 Adonay Olivier RN RN bcj Lawrence, Esme Peña RN Cabrera Arthur MD MD br1 Yanely Araiza, WEB PRODUCTION MANAGER WEB PRODUCTION MANAGER ar3 Diogenes Gerard, DO 11 Corrina Chamorro [facility] Shani Adams Desiree RN dsf Booth, Mandy RN mlc Anderson, Jessica RN ja5 The chart was reviewed and I authenticate all verbal orders and agree with the evaluation and treatment provided.Attachments: 03:56 [facility] Payment Agreement [facility] 21:06 T-Sheet-- Draft Copy klgalina Chart Complete MTDD
== END 2016-06-05 13:51 | disposition home or self-care (01) ==
LOC: M ED 00:36 → M SDC 14:23 → M MSPAV 15:19 → M SDC 06-05 13:51
PROVIDERS: ATTEND Surgery
DX: K80.18 Calculus of gallbladder with other cholecystitis without obstruction (principal); I10 Essential (primary) hypertension; E78.00 Pure hypercholesterolemia, unspecified; Z79.899 Other long term (current) drug therapy; Z88.0 Allergy status to penicillin; Z87.891 Personal history of nicotine dependence; Z85.828 Personal history of other malignant neoplasm of skin; Z91.040 Latex allergy status
CPT/HCPCS: 36415; 47562; 74177; 76705; 80048; 80076; 81001; 82150; 83690; 85025; 87086; 88304; 93005; 96361; 96365; 96375; 96376; 99284; J0330; J1100; J1170; J1200; J1335; J1885; J2250; J2405; J2710; J3010; Q9967

== ENCOUNTER → 2016-08-03 | Outpatient (REF) | payer OTHER ==
[~2016-08-03] MED LIST changes: +CETI10TA PO; +DRIS50002 PO; +FLON1SPR; +LISI10TA4 PO; +PERCOCET PO; +SIMV10TA2 PO
[2016-08-03 11:39] LABS: ALBUMIN 4.1 GM/DL (3.2-5.2); ALBUMIN/GLOBULIN RATIO 1.21 (1.00-1.93); ALKALINE PHOSPHATASE 66 U/L (45-117); ALT/SGPT 23 U/L (12-78); ANION GAP 9 MEQ/L (8-16); AST/SGOT 11 U/L (15-37); BILIRUBIN,TOTAL 0.5 MG/DL (0.2-1.0); BLOOD UREA NITROGEN 15 MG/DL (7-18); CALCIUM LEVEL 8.6 MG/DL (8.5-10.1); CARBON DIOXIDE LEVEL 27 MEQ/L (21-32); CHLORIDE LEVEL 105 MEQ/L (98-107); CHOLESTEROL LEVEL 192 MG/DL (<200); CREATININE FOR GFR 1.12 MG/DL (0.70-1.30); GLOMERULAR FILTRATION RATE > 60.0 (>56); GLUCOSE, FASTING 136 MG/DL (70-105); SODIUM LEVEL 141 MEQ/L (136-145); TOTAL PROTEIN 7.5 GM/DL (6.4-8.2); TRIGLYCERIDES LEVEL 127 MG/DL (<150)
== END ==
LOC: M SFHCCLAY 07:57
PROVIDERS: ATTEND Family Medicine
DX: I10 Essential (primary) hypertension (principal); E78.2 Mixed hyperlipidemia; E55.9 Vitamin D deficiency, unspecified

== ENCOUNTER → 2016-11-16 | Outpatient (REF) | payer OTHER ==
[2016-11-16 12:39] LABS: ALBUMIN 3.9 GM/DL (3.2-5.2); ALBUMIN/GLOBULIN RATIO 1.08 (1.00-1.93); ALKALINE PHOSPHATASE 61 U/L (45-117); ALT/SGPT 31 U/L (12-78); ANION GAP 7 MEQ/L (8-16); AST/SGOT 19 U/L (15-37); BILIRUBIN,TOTAL 0.5 MG/DL (0.2-1.0); BLOOD UREA NITROGEN 18 MG/DL (7-18); CALCIUM LEVEL 8.9 MG/DL (8.5-10.1); CARBON DIOXIDE LEVEL 27 MEQ/L (21-32); CHLORIDE LEVEL 106 MEQ/L (98-107); CHOLESTEROL LEVEL 188 MG/DL (<200); CREATININE FOR GFR 1.05 MG/DL (0.70-1.30); GLOMERULAR FILTRATION RATE > 60.0 (>56); GLUCOSE, FASTING 145 MG/DL (70-105); POTASSIUM SERUM 4.1 MEQ/L (3.5-5.1); SODIUM LEVEL 140 MEQ/L (136-145); TOTAL PROTEIN 7.5 GM/DL (6.4-8.2); TRIGLYCERIDES LEVEL 115 MG/DL (<150)
== END ==
LOC: M SFHCCLAY 09:02
PROVIDERS: ATTEND Family Medicine
DX: E78.2 Mixed hyperlipidemia (principal); R73.01 Impaired fasting glucose; E55.9 Vitamin D deficiency, unspecified

== ENCOUNTER → 2017-04-30 | Outpatient (CLI) | payer OTHER ==
[2017-04-30 14:54] LABS: BASO % 0.6 % (0.0-1.0); EOS % 0.2 % (0.0-3.0); IMMATURE GRANULOCYTE % 0.4 % (0-0); LYMPH # 0.9 10^3/uL (1.5-4.5); LYMPH % 16.5 % (24.0-44.0); MEAN CORPUSCULAR HEMOGLOBIN 28.7 pg (27.0-33.0); MONO # 0.5 10^3/uL (0.0-0.8); MONO % 9.6 % (0.0-5.0); NEUTROPHILS # 3.8 10^3/uL (1.8-7.7); NEUTROPHILS % 72.7 % (36.0-66.0); PLATELET COUNT, AUTOMATED 215 10^3/uL (150-450); RED CELL DISTRIBUTION WIDTH 13.6 % (11.5-14.5); WHITE BLOOD COUNT 5.2 10^3/uL (4.0-10.0)
--- NOTE | 2017-05-01 02:05 | REP ---
Clinical: Chronic cough. Technique: PA and lateral. Comparison: 02/06/2011. Findings: The mediastinum and cardiac silhouette are within normal limits and stable. No focal consolidation, effusion, or pneumothorax. Skeletal structures are stable. Evidence for prior right shoulder repair and arthritic changes to the left shoulder. Impression: Stable chest x-ray. No acute cardiopulmonary process. If the patient remains symptomatic consider chest CT for further investigation. Signed by Venkatesh Gomez MD 04/30/2017 10:57 P
== END ==
LOC: M WUC 11:21
PROVIDERS: ATTEND Physician Assistant
DX: R05 Cough (principal); J09.X2 Influenza due to identified novel influenza A virus with other respiratory manifestations

== ENCOUNTER → 2017-05-24 | Outpatient (REF) | payer OTHER ==
[2017-05-24 20:33] LABS: HEMATOCRIT 43.1 % (42.0-52.0); HEMOGLOBIN 14.3 g/dl (14.0-18.0); MEAN CORPUSCULAR HEMOGLOBIN 29.4 pg (27.0-33.0); MEAN CORPUSCULAR HGB CONC 33.2 g/dl (32.0-36.5); MEAN CORPUSCULAR VOLUME 88.7 fl (80.0-96.0); PLATELET COUNT, AUTOMATED 248 10^3/uL (150-450); RED BLOOD COUNT 4.86 10^6/uL (4.30-6.10); RED CELL DISTRIBUTION WIDTH 14.1 % (11.5-14.5); WHITE BLOOD COUNT 7.7 10^3/uL (4.0-10.0)
[2017-05-24 20:50] LABS: ADD MANUAL DIFFER YES; DIFF SLIDE NUMBER 168; POS COUNT POS FLAG; POSITIVE MORPH POS FLAG
[2017-05-24 21:16] LABS: ALBUMIN 3.6 GM/DL (3.2-5.2); ALKALINE PHOSPHATASE 43 U/L (45-117); ALT/SGPT 27 U/L (12-78); ANION GAP 9 MEQ/L (8-16); AST/SGOT 11 U/L (7-37); BILIRUBIN,TOTAL 0.7 MG/DL (0.2-1.0); BLOOD UREA NITROGEN 30 MG/DL (7-18); CALCIUM LEVEL 9.1 MG/DL (8.5-10.1); CARBON DIOXIDE LEVEL 28 MEQ/L (21-32); CHLORIDE LEVEL 101 MEQ/L (98-107); CREATININE FOR GFR 1.18 MG/DL (0.70-1.30); GLOMERULAR FILTRATION RATE > 60.0 (>56); GLUCOSE, FASTING 108 MG/DL (70-105); MAGNESIUM LEVEL 2.3 MG/DL (1.8-2.4); POTASSIUM SERUM 4.3 MEQ/L (3.5-5.1); SODIUM LEVEL 138 MEQ/L (136-145); TOTAL PROTEIN 7.2 GM/DL (6.4-8.2)
[2017-05-24 21:55] LABS: BASOPHILS 2 % (0-4); EOSINOPHILS 10 % (0-5); LYMPHOCYTES 43 % (16-52); MONOCYTES 9 % (0-8); NEUTROPHILS 36 % (35-75); PLATELET ESTIMATE NORMAL (NORMAL)
[2017-05-28 14:11] LABS: VITAMIN D 1,25 DIHYDROXY 43.9 pg/mL (19.9-79.3)
== END ==
LOC: M SFHCCLAY 09:32
DX: I10 Essential (primary) hypertension (principal); R25.2 Cramp and spasm; E55.9 Vitamin D deficiency, unspecified

== ENCOUNTER → 2017-07-11 | Outpatient (REF) | payer OTHER | LOC: M SFHCLERA 09:05 | DX: C44.519 Basal cell carcinoma of skin of other part of trunk (principal) | CPT/HCPCS: 88305 ==

== ENCOUNTER → 2017-11-13 | Outpatient (REF) | payer OTHER ==
[2017-11-13 17:29] LABS: ALBUMIN 3.8 GM/DL (3.2-5.2); ALBUMIN/GLOBULIN RATIO 1.09 (1.00-1.93); ALKALINE PHOSPHATASE 50 U/L (45-117); ALT/SGPT 27 U/L (12-78); ANION GAP 7 MEQ/L (8-16); AST/SGOT 17 U/L (7-37); BILIRUBIN,TOTAL 0.4 MG/DL (0.2-1.0); BLOOD UREA NITROGEN 25 MG/DL (7-18); CALCIUM LEVEL 8.7 MG/DL (8.5-10.1); CARBON DIOXIDE LEVEL 29 MEQ/L (21-32); CHLORIDE LEVEL 103 MEQ/L (98-107); CHOLESTEROL LEVEL 170 MG/DL (<200); CREATININE FOR GFR 1.33 MG/DL (0.70-1.30); GLOMERULAR FILTRATION RATE 58.6 (>56); GLUCOSE, FASTING 141 MG/DL (70-100); HDL CHOLESTEROL 55 MG/DL (>40); LDL CHOLESTEROL 70.4 MG/DL (<100); NON-HDL-C 115 MG/DL; SODIUM LEVEL 139 MEQ/L (136-145); TOTAL PROTEIN 7.3 GM/DL (6.4-8.2); TRIGLYCERIDES LEVEL 223 MG/DL (<150)
[2017-11-13 17:34] LABS: ESTIMATED AVERAGE GLUCOSE 140 MG/DL (60-110); HEMOGLOBIN A1c 6.5 %
== END ==
LOC: M SFHCCLAY 09:56
DX: I10 Essential (primary) hypertension (principal); R73.01 Impaired fasting glucose; E78.2 Mixed hyperlipidemia
CPT/HCPCS: 80053

== ENCOUNTER → 2017-12-12 | Outpatient (REF) | payer OTHER | LOC: M SFHCPLAZ 15:59 | DX: C44.301 Unspecified malignant neoplasm of skin of nose (principal); C44.602 Unspecified malignant neoplasm of skin of right upper limb, including shoulder | CPT/HCPCS: 88305 ==

== ENCOUNTER → 2018-05-30 | Outpatient (REF) | payer OTHER ==
[~2018-05-30] MED LIST changes: -DRIS50002 PO; +DRIS50003 PO
[2018-05-30 17:04] LABS: HEMOGLOBIN A1c 6.1 %
[2018-05-31 08:57] LABS: ALBUMIN 4.1 GM/DL (3.2-5.2); ALT/SGPT 29 U/L (12-78); BILIRUBIN,TOTAL 0.4 MG/DL (0.2-1.0); BLOOD UREA NITROGEN 17 MG/DL (7-18); CALCIUM LEVEL 9.1 MG/DL (8.8-10.2); CARBON DIOXIDE LEVEL 28 MEQ/L (21-32); CHLORIDE LEVEL 102 MEQ/L (98-107); CREATININE FOR GFR 1.09 MG/DL (0.70-1.30); GLOMERULAR FILTRATION RATE > 60.0 (>49); GLUCOSE, FASTING 107 MG/DL (70-100); POTASSIUM SERUM 3.9 MEQ/L (3.5-5.1); SODIUM LEVEL 138 MEQ/L (136-145); TOTAL PROTEIN 6.9 GM/DL (6.4-8.2)
== END ==
LOC: M SFHCCLAY 10:56
PROVIDERS: ATTEND Family Medicine
DX: I10 Essential (primary) hypertension (principal); R73.01 Impaired fasting glucose; E55.9 Vitamin D deficiency, unspecified

== ENCOUNTER → 2018-12-04 | Outpatient (REF) | payer OTHER | LOC: M SFHCPLAZ 18:40 | PROVIDERS: ATTEND Dermatology | DX: C44.619 Basal cell carcinoma of skin of left upper limb, including shoulder (principal); C44.91 Basal cell carcinoma of skin, unspecified; C44.329 Squamous cell carcinoma of skin of other parts of face; L57.0 Actinic keratosis ==

== ENCOUNTER → 2018-12-10 | Outpatient (CLI) | payer OTHER ==
--- NOTE | 2018-12-10 15:54 | REP ---
Clinical: Right mid foot pain Technique: AP, lateral, bilateral oblique views right foot . Findings: The osseous structures and joint spaces are intact and normal. There is no evidence for acute fracture or dislocation. Surrounding soft tissues are unremarkable. No subcutaneous emphysema or radiodense foreign body. Impression: Age-appropriate right foot series. No acute fracture or dislocation.
== END ==
LOC: M CLY 15:02
PROVIDERS: ATTEND Family Medicine
DX: M79.671 Pain in right foot (principal)

== ENCOUNTER → 2019-02-11 | Outpatient (REF) | payer OTHER | LOC: M SFHCPLAZ 09:50 | PROVIDERS: ATTEND Dermatology | DX: C44.321 Squamous cell carcinoma of skin of nose (principal) ==

== ENCOUNTER → 2019-02-27 | Outpatient (REF) | payer OTHER | LOC: M SFHCPLAZ 10:17 | PROVIDERS: ATTEND Dermatology | DX: C44.309 Unspecified malignant neoplasm of skin of other parts of face (principal) ==

== ENCOUNTER → 2019-03-13 | Outpatient (REF) | payer OTHER | LOC: M SFHCPLAZ 09:54 | PROVIDERS: ATTEND Dermatology | DX: L90.5 Scar conditions and fibrosis of skin (principal) ==

== ENCOUNTER → 2019-06-17 | Outpatient (REF) | payer OTHER ==
[~2019-06-17] MED LIST changes: -SIMV10TA2 PO; +SIMV10TA21 PO
[2019-06-18 14:04] LABS: ALT/SGPT 27 U/L (12-78); BILIRUBIN,TOTAL 0.1 MG/DL (0.2-1.0); BLOOD UREA NITROGEN 18 MG/DL (7-18); CALCIUM LEVEL 8.6 MG/DL (8.8-10.2); CARBON DIOXIDE LEVEL 30 MEQ/L (21-32); CHLORIDE LEVEL 108 MEQ/L (98-107); CHOLESTEROL LEVEL 181 MG/DL (<200); CHOLESTEROL RISK RATIO 3.415 (<5); GLOMERULAR FILTRATION RATE > 60.0 (>49); GLUCOSE, FASTING 110 MG/DL (70-100); HDL CHOLESTEROL 53 MG/DL (>40); LDL CHOLESTEROL 82 MG/DL (<100); NON-HDL-C 128 MG/DL; POTASSIUM SERUM 4.1 MEQ/L (3.5-5.1); SODIUM LEVEL 142 MEQ/L (136-145); TOTAL PROTEIN 6.9 GM/DL (6.4-8.2); TRIGLYCERIDES LEVEL 228 MG/DL (<150)
[2019-06-18 15:26] LABS: HEMOGLOBIN A1c 6.2 %
== END ==
LOC: M SFHCCLAY 14:52
PROVIDERS: ATTEND Family Medicine
DX: I10 Essential (primary) hypertension (principal); R73.01 Impaired fasting glucose; E55.9 Vitamin D deficiency, unspecified

== ENCOUNTER → 2020-05-18 | Outpatient (CLI) | payer OTHER ==
--- NOTE | 2020-05-18 10:50 | REP ---
INDICATION: PAIN RIGHT SHOULDER. COMPARISON: 07/12/2009 TECHNIQUE: Internal rotation, external rotation, axillary, and Y view of the right shoulder FINDINGS: Patient is status post right shoulder replacement without dislocation. Cortical irregularity at the acromioclavicular joint suggest mild degenerative changes. No acute fracture is appreciated. Surrounding soft tissues are relatively normal. IMPRESSION: No obvious significant abnormality. <Electronically signed by Venkatesh Gomez > 05/18/20 1045
== END ==
LOC: M SOG 09:44
PROVIDERS: ATTEND Orthopaedic Surgery Sports Medicine
DX: M25.511 Pain in right shoulder (principal); Z96.611 Presence of right artificial shoulder joint

== ENCOUNTER → 2020-06-03 | Outpatient (CLI) | payer OTHER ==
[~2020-06-03] MED LIST changes: +LISI10TA22 PO; -LISI10TA4 PO
--- NOTE | 2020-06-03 09:07 | REP ---
INDICATION: RT SHOULDER PAIN. COMPARISON: None. TECHNIQUE: Axial noncontrast images of the right shoulder with coronal and sagittal reformations. FINDINGS: Patient is status post right shoulder replacement with relatively normal appearance and positioning to the orthopedic hardware. Evaluation is somewhat limited due to metallic streak artifact. There is mild cortical irregularity and very subtle spurring at the acromioclavicular joint. No obvious significant loose bodies are identified. The musculature and associated soft tissues appear relatively normal by noncontrast CT evaluation. There is no obvious effusion. IMPRESSION: Relatively satisfactory appearance to the right shoulder hardware. Mild cortical irregularity and spurring at the acromioclavicular joint. No further obvious pathology by CT evaluation. <Electronically signed by Venkatesh Gomez > 06/03/20 0913
== END ==
LOC: M RAD 08:21
PROVIDERS: ATTEND Orthopaedic Surgery Sports Medicine
DX: Z96.611 Presence of right artificial shoulder joint (principal)

== ENCOUNTER → 2020-06-14 | Outpatient (REF) | payer OTHER ==
[~2020-06-14] MED LIST changes: -LISI10TA22 PO; +LISI10TA4 PO
[2020-06-14 16:16] LABS: BASO % 0.5 % (0.0-1.0); EOS # 0.2 10^3/uL (0.0-0.5); EOS % 3.1 % (0.0-3.0); HEMATOCRIT 43.9 % (42.0-52.0); HEMOGLOBIN 14.2 g/dl (13.5-17.5); LYMPH # 1.4 10^3/uL (1.5-5.0); LYMPH % 24.1 % (24.0-44.0); MEAN CORPUSCULAR HEMOGLOBIN 29.1 pg (27.0-33.0); MEAN CORPUSCULAR HGB CONC 32.3 g/dl (32.0-36.5); MONO # 0.4 10^3/uL (0.0-0.8); MONO % 6.4 % (0.0-5.0); NEUTROPHILS # 3.8 10^3/uL (1.5-8.5); NEUTROPHILS % 65.6 % (36.0-66.0); PLATELET COUNT, AUTOMATED 324 10^3/uL (150-450); RED BLOOD COUNT 4.88 10^6/uL (4.30-6.10); WHITE BLOOD COUNT 5.8 10^3/uL (4.0-10.0)
[2020-06-14 16:46] LABS: ALBUMIN 4.1 GM/DL (3.2-5.2); ALT/SGPT 26 U/L (12-78); AMYLASE 55 U/L (25-115); BILIRUBIN,TOTAL 0.4 MG/DL (0.2-1.0); BLOOD UREA NITROGEN 26 MG/DL (7-18); CALCIUM LEVEL 9.8 MG/DL (8.8-10.2); CARBON DIOXIDE LEVEL 32 MEQ/L (21-32); CHLORIDE LEVEL 102 MEQ/L (98-107); CHOLESTEROL LEVEL 192 MG/DL (<200); CHOLESTEROL RISK RATIO 3.555 (<5); CREATININE FOR GFR 1.13 MG/DL (0.70-1.30); GLOMERULAR FILTRATION RATE > 60.0 (>49); GLUCOSE, FASTING 174 MG/DL (70-100); HDL CHOLESTEROL 54 MG/DL (>40); LDL CHOLESTEROL 96 MG/DL (<100); LIPASE 102 U/L (73-393); NON-HDL-C 138 MG/DL; POTASSIUM SERUM 4.3 MEQ/L (3.5-5.1); SODIUM LEVEL 139 MEQ/L (136-145); TOTAL PROTEIN 7.3 GM/DL (6.4-8.2); TRIGLYCERIDES LEVEL 212 MG/DL (<150)
== END ==
LOC: M SFHCCLAY 10:24
PROVIDERS: ATTEND Family Medicine
DX: I10 Essential (primary) hypertension (principal); R73.01 Impaired fasting glucose; E78.2 Mixed hyperlipidemia; E55.9 Vitamin D deficiency, unspecified; R10.11 Right upper quadrant pain

== ENCOUNTER → 2020-06-21 | Outpatient (CLI) | payer OTHER ==
[~2020-06-21] MED LIST changes: +LISI10TA22 PO; -LISI10TA4 PO
[2020-06-21 12:39] LABS: BASO % 0.5 % (0.0-1.0); EOS # 0.2 10^3/uL (0.0-0.5); EOS % 3.2 % (0.0-3.0); HEMATOCRIT 41.8 % (42.0-52.0); HEMOGLOBIN 13.6 g/dl (13.5-17.5); LYMPH # 1.5 10^3/uL (1.5-5.0); MEAN CORPUSCULAR HEMOGLOBIN 29.3 pg (27.0-33.0); MEAN CORPUSCULAR HGB CONC 32.5 g/dl (32.0-36.5); MEAN CORPUSCULAR VOLUME 90.1 fl (80.0-96.0); MONO # 0.4 10^3/uL (0.0-0.8); MONO % 7.6 % (0.0-5.0); NEUTROPHILS # 3.5 10^3/uL (1.5-8.5); NEUTROPHILS % 61.3 % (36.0-66.0); PLATELET COUNT, AUTOMATED 267 10^3/uL (150-450); RED BLOOD COUNT 4.64 10^6/uL (4.30-6.10); WHITE BLOOD COUNT 5.6 10^3/uL (4.0-10.0)
[2020-06-21 14:21] LABS: ERYTHROCYTE SEDIMENTATION RATE 12 mm/hr (0-20)
== END ==
LOC: M LAB 11:41
PROVIDERS: ATTEND Orthopaedic Surgery Sports Medicine
DX: Z96.611 Presence of right artificial shoulder joint (principal)

== ENCOUNTER → 2020-06-24 | Outpatient (CLI) | payer OTHER ==
--- NOTE | 2020-06-25 08:51 | REP ---
INDICATION: ARTIFICIAL RT SHOULDER JOINT, EVAL FOR INFECTION COMPARISON: None TECHNIQUE: Real time silverio scale B-mode ultrasound examination using linear high-frequency transducer. FINDINGS: Ultrasound examination of the right shoulder demonstrates a fluid collection overlying the humeral head. IMPRESSION: 1. Fluid collection identified overlying the humeral head. <Electronically signed by Venkatesh Gomez > 06/25/20 0808
== END ==
LOC: M RAD 13:59
PROVIDERS: ATTEND Orthopaedic Surgery Sports Medicine
DX: Z96.611 Presence of right artificial shoulder joint (principal)

== ENCOUNTER → 2020-07-13 | Outpatient (CLI) | payer OTHER ==
[~2020-07-13] MED LIST changes: +LIDOCAINE 1% MDV 20ML VIAL As Ordered ONE; +OXYC-141 PO; +SODIUM BICARBONATE 8.4% INJ 50MEQ 50 ML VIAL As Ordered ONE
[2020-07-13 09:30] VITALS: BP 136/88
--- NOTE | 2020-07-13 11:04 | REP ---
INDICATION: PRESENCE OF RIGHT ARTIFICIAL SHOULDER JOINT COMPARISON: 06/24/2020 TECHNIQUE: Realtime grayscale B-mode ultrasound examination using linear high-frequency transducer. FINDINGS: Ultrasound examination to the right shoulder demonstrates linear echogenic areas with posterior shadowing likely related to metallic joint replacement components. No obvious joint fluid identified. IMPRESSION: No obvious joint fluid appreciated. <Electronically signed by Venkatesh Gomez > 07/13/20 1100
== END ==
LOC: M IRPRO 09:20
PROVIDERS: ATTEND Orthopaedic Surgery Sports Medicine
DX: M25.511 Pain in right shoulder (principal); Z96.611 Presence of right artificial shoulder joint; Z53.8 Procedure and treatment not carried out for other reasons

== ENCOUNTER → 2020-07-15 | Outpatient (CLI) | payer OTHER ==
[~2020-07-15] MED LIST changes: -SODIUM BICARBONATE 8.4% INJ 50MEQ 50 ML VIAL As Ordered ONE
--- NOTE | 2020-07-15 17:07 | REP ---
INDICATION: RT SHOULDER PN TOTAL SHOULDER ARTHROPLASTY W/FLUID. COMPARISON: None TECHNIQUE: The procedure was performed by MILAN Jansen, under the direct supervision of Dr. Alcantara. The benefits and risks of the procedure were explained to the patient, and an informed consent was obtained. Directly prior to the start of the procedure, a formal time-out was completed in the procedure room. The right glenohumeral joint space was localized using fluoroscopic guidance. The skin was prepped and draped in a sterile fashion. Approximately 10 mL of 1% Lidocaine 10 mg/ml was used as a local anesthetic in total. Using fluoroscopic guidance, a #22 gauge spinal needle was inserted and advanced into the right glenohumeral joint space. Multiple attempts were made in multiple locations of the right glenohumeral joint in the attempt to aspirate joint fluid. Approximately 0.5 mL of joint fluid was able to be aspirated and was sent to cytology for further analysis. The needle was removed and hemostasis was achieved. FINDINGS: The patient tolerated the procedure well and there were no immediate complications. IMPRESSION: 1. Right glenohumeral joint aspiration under fluoroscopic guidance. 0.6 minutes of fluoroscopy time was utilized for this procedure. Some fluoroscopic images are performed with last image hold technology. These images require no additional radiation. <Electronically signed by Fatoumata Ramon > 07/15/20 [id number] <Electronically signed by Brandon Alcantara > 07/15/20 [id number]
== END ==
LOC: M IRPRO 13:31
PROVIDERS: ATTEND Orthopaedic Surgery Sports Medicine
DX: Z96.611 Presence of right artificial shoulder joint (principal); M25.511 Pain in right shoulder

== ENCOUNTER → 2021-08-05 | Outpatient (REF) | payer OTHER ==
[~2021-08-05] MED LIST changes: -LIDOCAINE 1% MDV 20ML VIAL As Ordered ONE
[2021-08-05 11:48] LABS: BASO % 0.6 % (0.0-1.0); EOS # 0.2 10^3/uL (0.0-0.5); EOS % 3.9 % (0.0-3.0); HEMATOCRIT 42.7 % (42.0-52.0); LYMPH # 2.5 10^3/uL (1.5-5.0); LYMPH % 40.1 % (24.0-44.0); MEAN CORPUSCULAR HEMOGLOBIN 29.5 pg (27.0-33.0); MEAN CORPUSCULAR HGB CONC 32.8 g/dl (32.0-36.5); MEAN CORPUSCULAR VOLUME 89.9 fl (80.0-96.0); MONO # 0.5 10^3/uL (0.0-0.8); MONO % 8.4 % (2.0-8.0); NEUTROPHILS # 2.9 10^3/uL (1.5-8.5); NEUTROPHILS % 46.8 % (36.0-66.0); PLATELET COUNT, AUTOMATED 285 10^3/uL (150-450); RED BLOOD COUNT 4.75 10^6/uL (4.30-6.10); WHITE BLOOD COUNT 6.2 10^3/uL (4.0-10.0)
[2021-08-05 11:55] LABS: ALBUMIN 3.8 GM/DL (3.2-5.2); ALT/SGPT 24 U/L (12-78); BILIRUBIN,TOTAL 0.4 MG/DL (0.2-1.0); BLOOD UREA NITROGEN 22 MG/DL (7-18); CALCIUM LEVEL 8.9 MG/DL (8.8-10.2); CARBON DIOXIDE LEVEL 30 MEQ/L (21-32); CHLORIDE LEVEL 106 MEQ/L (98-107); CHOLESTEROL LEVEL 184 MG/DL (<200); CHOLESTEROL RISK RATIO 3.172 (<5); CREATININE FOR GFR 1.12 MG/DL (0.70-1.30); GLOMERULAR FILTRATION RATE > 60.0 (>49); GLUCOSE, FASTING 90 MG/DL (70-100); HDL CHOLESTEROL 58 MG/DL (>40); LDL CHOLESTEROL 103 MG/DL (<100); NON-HDL-C 126 MG/DL; POTASSIUM SERUM 3.8 MEQ/L (3.5-5.1); SODIUM LEVEL 140 MEQ/L (136-145); TRIGLYCERIDES LEVEL 117 MG/DL (<150)
[2021-08-05 12:35] LABS: HEMOGLOBIN A1c 6.2 %
== END ==
LOC: M SFHCCLAY 08:33
PROVIDERS: ATTEND Family Medicine
DX: Z12.5 Encounter for screening for malignant neoplasm of prostate (principal); I10 Essential (primary) hypertension; R73.01 Impaired fasting glucose; E78.2 Mixed hyperlipidemia; E55.9 Vitamin D deficiency, unspecified

== ENCOUNTER → 2021-08-09 | Outpatient (CLI) | payer OTHER | LOC: M CLY 11:38 | PROVIDERS: ATTEND Family Medicine | DX: M25.561 Pain in right knee (principal) ==

== ENCOUNTER → 2021-09-12 | Outpatient (REF) | payer OTHER | LOC: M SFHCDERM 17:15 | PROVIDERS: ATTEND Nurse Practitioner Family | DX: D48.9 Neoplasm of uncertain behavior, unspecified (principal) ==

== ENCOUNTER → 2022-08-04 | Outpatient (REF) | payer OTHER ==
[2022-08-04 19:04] LABS: BASO % 0.6 % (0.0-1.0); EOS # 0.1 10^3/uL (0.0-0.5); EOS % 2.2 % (0.0-3.0); HEMATOCRIT 46.9 % (42.0-52.0); HEMOGLOBIN 15.1 g/dl (13.5-17.5); LYMPH # 2.2 10^3/uL (1.5-5.0); LYMPH % 33.2 % (24.0-44.0); MEAN CORPUSCULAR HEMOGLOBIN 29.2 pg (27.0-33.0); MEAN CORPUSCULAR HGB CONC 32.2 g/dl (32.0-36.5); MEAN CORPUSCULAR VOLUME 90.7 fl (80.0-96.0); MONO # 0.5 10^3/uL (0.0-0.8); MONO % 7.6 % (2.0-8.0); NEUTROPHILS # 3.6 10^3/uL (1.5-8.5); NEUTROPHILS % 56.1 % (36.0-66.0); PLATELET COUNT, AUTOMATED 334 10^3/uL (150-450); RED BLOOD COUNT 5.17 10^6/uL (4.30-6.10); WHITE BLOOD COUNT 6.5 10^3/uL (4.0-10.0)
[2022-08-04 19:09] LABS: CHOLESTEROL RISK RATIO 2.73 (<5); HDL CHOLESTEROL 65.8 MG/DL (>40); LDL CHOLESTEROL 83.2 MG/DL (<100); NON-HDL-C 114.2 MG/DL
== END ==
LOC: M SFHCCLAY 14:27
PROVIDERS: ATTEND Family Medicine
DX: I10 Essential (primary) hypertension (principal); R73.01 Impaired fasting glucose; E78.2 Mixed hyperlipidemia; E55.9 Vitamin D deficiency, unspecified

== ENCOUNTER → 2023-05-01 | Outpatient (REF) | payer MEDICARE, OTHER ==
[2023-05-01 14:36] LABS: ALBUMIN 3.8 G/DL (3.2-5.2); ALKALINE PHOSPHATASE 40 U/L (46-116); ALT/SGPT 17 U/L (7.0-40); AST/SGOT 14 U/L (<34); BILIRUBIN,TOTAL 0.4 MG/DL (0.3-1.2); BLOOD UREA NITROGEN 23 MG/DL (9-23); CARBON DIOXIDE LEVEL 28 MMOL/L (20-31); CHLORIDE LEVEL 103 MMOL/L (98-107); CHOLESTEROL LEVEL 219 MG/DL (<200); CREATININE FOR GFR 0.98 MG/DL (0.70-1.30); GLOMERULAR FILTRATION RATE > 60.0 (>49); GLUCOSE, FASTING 120 MG/DL (74-106); HDL CHOLESTEROL 50.9 MG/DL (>40); LDL CHOLESTEROL 140.5 MG/DL (<100); NON-HDL-C 168.1 MG/DL; POTASSIUM SERUM 4.1 MMOL/L (3.5-5.1); SODIUM LEVEL 138 MMOL/L (136-145); TOTAL PROTEIN 6.3 G/DL (5.7-8.2); TRIGLYCERIDES LEVEL 138 MG/DL (<150)
== END ==
LOC: M SFHCCLAY 09:04
PROVIDERS: ATTEND Family Medicine
DX: E78.2 Mixed hyperlipidemia (principal)

== ENCOUNTER 2023-09-12 07:53 | Emergency (ER) | payer MEDICARE, MEDICAID ==
[~2023-09-12] VITALS: Ht 162.6 cm; Wt 86.4 kg
[2023-09-12] MEDS: ONDANSETRON 4MG ORAL DISINTEGRATING TAB PO ONE (10:18)
[2023-09-12] MEDS: PERCOCET 5MG/325MG TAB PO ONE (10:18)
[2023-09-12] MEDS ORDERED: FLUO1CRE2 TOP (10:59)
[2023-09-12] MEDS ORDERED: KETO2SHA8 TOP (10:59)
[2023-09-12] MEDS ORDERED: CALC0.0017 TOP (10:59)
[2023-09-12] MEDS ORDERED: HYDR2.5C TOP (10:59)
[2023-09-12] MEDS ORDERED: OXYC-517 PO (10:59)
[2023-09-12] MEDS ORDERED: LISI20TA35 PO (10:59)
[2023-09-12] MEDS ORDERED: TACR0.1O TOP (11:00)
[2023-09-12] MEDS ORDERED: HOME MED LIST COMPLETE! XX SCH (11:05)
[2023-09-12 12:48] VITALS: BP 123/62; TEMP 98.6; O2SAT 97
== END 2023-09-12 12:53 | disposition home or self-care (01) ==
LOC: M ED 07:53
DX: S06.0X0A Concussion without loss of consciousness, initial encounter (principal); S16.1XXA Strain of muscle, fascia and tendon at neck level, initial encounter; S42.301A Unspecified fracture of shaft of humerus, right arm, initial encounter for closed fracture; W10.8XXA Fall (on) (from) other stairs and steps, initial encounter; I10 Essential (primary) hypertension; E78.5 Hyperlipidemia, unspecified; Z87.891 Personal history of nicotine dependence; Y92.009 Unspecified place in unspecified non-institutional (private) residence as the place of occurrence of the external cause; Y93.89 Activity, other specified; Y99.9 Unspecified external cause status; Z91.041 Radiographic dye allergy status; Z88.0 Allergy status to penicillin; Z88.5 Allergy status to narcotic agent; Z88.8 Allergy status to other drugs, medicaments and biological substances; Z91.018 Allergy to other foods; Z91.013 Allergy to seafood; Z79.899 Other long term (current) drug therapy; Z79.811 Long term (current) use of aromatase inhibitors

== ENCOUNTER → 2023-09-18 | Outpatient (REF) | payer MEDICARE, OTHER ==
[~2023-09-18] MED LIST changes: +CALC0.0017 TOP; +FLUO1CRE2 TOP; +HYDR2.5C TOP; +KETO2SHA8 TOP; +LISI20TA35 PO; +OXYC-517 PO; +TACR0.1O TOP
[2023-09-18 18:14] LABS: ALBUMIN 3.9 G/DL (3.2-5.2); ALKALINE PHOSPHATASE 45 U/L (46-116); ALT/SGPT 21 U/L (7.0-40); AST/SGOT 16 U/L (<34); BILIRUBIN,TOTAL 0.4 MG/DL (0.3-1.2); BLOOD UREA NITROGEN 21 MG/DL (9-23); CARBON DIOXIDE LEVEL 27 MMOL/L (20-31); CHLORIDE LEVEL 103 MMOL/L (98-107); CREATININE FOR GFR 0.95 MG/DL (0.70-1.30); GLOMERULAR FILTRATION RATE > 60.0 (>49); GLUCOSE, FASTING 135 MG/DL (74-106); POTASSIUM SERUM 3.7 MMOL/L (3.5-5.1); SODIUM LEVEL 138 MMOL/L (136-145); TOTAL PROTEIN 6.7 G/DL (5.7-8.2)
== END ==
LOC: M SFHCCLAY 09:33
PROVIDERS: ATTEND Family Medicine
DX: R73.01 Impaired fasting glucose (principal)

== ENCOUNTER → 2023-09-25 | Outpatient (CLI) | payer MEDICARE, MEDICAID | LOC: M PLAIMG 10:05 | PROVIDERS: ATTEND Physician Assistant | DX: M97.31XA Periprosthetic fracture around internal prosthetic right shoulder joint, initial encounter (principal); Z96.611 Presence of right artificial shoulder joint ==

== ENCOUNTER 2024-04-02 09:13 | Outpatient (RCR) | payer MEDICARE | END 2024-04-12 | LOC: M PT 09:13 | PROVIDERS: ATTEND Physician Assistant | DX: M25.511 Pain in right shoulder (principal); Z96.611 Presence of right artificial shoulder joint; M62.838 Other muscle spasm ==

== ENCOUNTER → 2024-07-31 | Outpatient (CLI) | payer MEDICAID, MEDICARE, OTHER | LOC: M RAD 07:23 | PROVIDERS: ATTEND Pain Medicine Interventional Pain Medicine | DX: M54.12 Radiculopathy, cervical region (principal); M50.21 Other cervical disc displacement, high cervical region; M25.78 Osteophyte, vertebrae ==

== ENCOUNTER → 2024-09-19 | Outpatient (REF) | payer MEDICARE ==
[~2024-09-19] MED LIST changes: +KETO120S5 TOP; -KETO2SHA8 TOP
[2024-09-19 17:15] LABS: BASO # 0.1 10^3/uL (0.0-0.2); BASO % 0.9 % (0.0-1.0); EOS # 0.2 10^3/uL (0.0-0.5); EOS % 3.5 % (0.0-3.0); HEMATOCRIT 41.4 % (42.0-52.0); HEMOGLOBIN 13.4 g/dl (13.5-17.5); LYMPH # 1.4 10^3/uL (1.5-5.0); LYMPH % 25.2 % (24.0-44.0); MEAN CORPUSCULAR HEMOGLOBIN 29.7 pg (27.0-33.0); MEAN CORPUSCULAR HGB CONC 32.4 g/dl (32.0-36.5); MEAN CORPUSCULAR VOLUME 91.8 fl (80.0-96.0); MONO # 0.4 10^3/uL (0.0-0.8); MONO % 6.9 % (2.0-8.0); NEUTROPHILS # 3.6 10^3/uL (1.5-8.5); NEUTROPHILS % 63.3 % (36.0-66.0); PLATELET COUNT, AUTOMATED 338 10^3/uL (150-450); RED BLOOD COUNT 4.51 10^6/uL (4.30-6.10); WHITE BLOOD COUNT 5.6 10^3/uL (4.0-10.0)
[2024-09-19 17:19] LABS: PSA SCREENING 1.37 NG/ML (< 4.00)
[2024-09-19 17:21] LABS: BILIRUBIN,TOTAL 0.4 MG/DL (0.3-1.2); CALCIUM LEVEL 9.3 MG/DL (8.3-10.6); CHOLESTEROL RISK RATIO 3.97 (<5); CREATININE FOR GFR 0.99 MG/DL (0.70-1.30); HDL CHOLESTEROL 56.6 MG/DL (>40); LDL CHOLESTEROL 147.6 MG/DL (<100); NON-HDL-C 168.4 MG/DL; POTASSIUM SERUM 4.4 MMOL/L (3.5-5.1); TOTAL PROTEIN 6.8 G/DL (5.7-8.2)
[2024-09-19 17:58] LABS: HEMOGLOBIN A1c 6.1 % (4.0-6.0)
== END ==
LOC: M SFHCCLAY 10:55
PROVIDERS: ATTEND Family Medicine
DX: I10 Essential (primary) hypertension (principal); R73.01 Impaired fasting glucose; E78.2 Mixed hyperlipidemia; R25.2 Cramp and spasm; Z12.5 Encounter for screening for malignant neoplasm of prostate
CPT/HCPCS: 80053; 80061; 83036; 83735; 85025; G0103

== ENCOUNTER → 2024-12-18 | Outpatient (CLI) | payer MEDICARE ==
[~2024-12-18] MED LIST changes: +ISOVUE-M 300 61% 15 ML VIAL As Ordered ONE; +KETO-204 PO; +METH-1165; +PSEU-52 PO
[2024-12-18 14:04] VITALS: TEMP 99.2
[2024-12-18 16:22] VITALS: BP 125/70; O2SAT 96
== END ==
LOC: M IRPRO 13:47
PROVIDERS: ATTEND Family Medicine
DX: Z53.09 Procedure and treatment not carried out because of other contraindication (principal); M47.22 Other spondylosis with radiculopathy, cervical region
CPT/HCPCS: 62284; 76000; Q9967

== ENCOUNTER 2025-01-08 10:15 | Emergency (ER) | payer MEDICARE ==
[~2025-01-08] VITALS: Ht 162.6 cm; Wt 80.9 kg
[~2025-01-08 10:15] MED LIST changes: -ISOVUE-M 300 61% 15 ML VIAL As Ordered ONE; -KETO-204 PO; -METH-1165; -PSEU-52 PO
[2025-01-08] MEDS ORDERED: PSEU-52 PO (10:27)
[2025-01-08] MEDS ORDERED: METH-1165 (10:27)
[2025-01-08 11:55] LABS: BASO # 0.0 10^3/uL (0.0-0.2); BASO % 0.4 % (0.0-1.0); EOS # 0.1 10^3/uL (0.0-0.5); EOS % 2.6 % (0.0-3.0); LYMPH # 1.2 10^3/uL (1.5-5.0); LYMPH % 24.1 % (24.0-44.0); MONO # 0.4 10^3/uL (0.0-0.8); MONO % 7.9 % (2.0-8.0); NEUTROPHILS # 3.2 10^3/uL (1.5-8.5); NEUTROPHILS % 64.8 % (36.0-66.0); PLATELET COUNT, AUTOMATED 271 10^3/uL (150-450)
[2025-01-08 12:06] LABS: ERYTHROCYTE SEDIMENTATION RATE 25 mm/hr (0-20)
[2025-01-08 12:21] LABS: C REACTIVE PROTEIN QUANTITATIV 0.73 MG/DL (<1.0); CALCIUM LEVEL 9.2 MG/DL (8.3-10.6); CARBON DIOXIDE LEVEL 26.0 MMOL/L (20-31); CHLORIDE LEVEL 106.0 MMOL/L (98-107); CREATININE FOR GFR 1.0 MG/DL (0.70-1.30); GLOMERULAR FILTRATION RATE 83.0 (>49); POTASSIUM SERUM 4.5 MMOL/L (3.5-5.1); SODIUM LEVEL 142.0 MMOL/L (136-145)
[2025-01-08 13:00] VITALS: BP 141/76; O2SAT 90
[2025-01-08 13:05] VITALS: TEMP 96.8
[2025-01-08] MEDS ORDERED: KETO-204 PO (13:06)
== END 2025-01-08 13:19 | disposition home or self-care (01) ==
LOC: M ED 11:18
DX: R51.9 Headache, unspecified (principal); M50.30 Other cervical disc degeneration, unspecified cervical region; Z79.899 Other long term (current) drug therapy; Z91.041 Radiographic dye allergy status; Z88.0 Allergy status to penicillin; Z91.013 Allergy to seafood; Z88.5 Allergy status to narcotic agent; Z88.8 Allergy status to other drugs, medicaments and biological substances

== ENCOUNTER → 2025-03-04 | Outpatient (CLI) | payer MEDICARE, MEDICAID ==
[~2025-03-04] MED LIST changes: +ISOVUE-M 300 61% 15 ML VIAL IV ONE; +KETO-204 PO; +LIDOCAINE 1% MDV 20 ML VIAL As Ordered ONE; +METH-1165; +PSEU-52 PO
[2025-03-04 12:24] VITALS: TEMP 97.9
[2025-03-04] MEDS: NS (Normal Saline) 0.9% 1,000 ML IV SCH (12:40)
[2025-03-04] MEDS: MIDAZOLAM INJ 2 MG/2 ML VIAL IV PRN (13:50)
[2025-03-04 15:25] VITALS: BP 153/81; O2SAT 97
== END ==
LOC: M IRPRO 12:05
PROVIDERS: ATTEND Family Medicine
DX: M47.22 Other spondylosis with radiculopathy, cervical region (principal)
CPT/HCPCS: 62284; 72125; 99152; 99153; J2250; J3010; Q9967